=== PATIENT | male | born 1965 | race Caucasian/White ===

== ENCOUNTER 2016-11-13 09:58 | Emergency (ER) | payer BC, OTHER ==
[2016-11-13] MEDS ORDERED: MORPHINE SULFATE 10 MG/ML INJ IV ONE (10:18)
[2016-11-13] MEDS ORDERED: KETOROLAC TROMETHAMINE INJ/PF 30 MG/1 ML SDV IV ONE (10:18)
[2016-11-13] MEDS ORDERED: NORMAL SALINE 1000 ML 1,000 ML IV PRN (10:18)
[2016-11-13] MEDS ORDERED: ONDANSETRON HCL INJ/PF 4 MG/2 ML SDV IV ONE (10:18)
--- NOTE | 2016-11-13 10:20 | ER Document Report ---
ED Medical Screen (RME) - General Chief Complaint: Possible Kidney Stone Stated Complaint: RIGHT SIDE BACK PAIN Time Seen by Provider: 11/13/16 10:18 Notes: Patient started with flank pain that started yesterday. It is right-sided. He states he has never had a kidney stone but believes he has one now. Patient is on Coumadin for cardiac disease and states he has been peeing blood today. He states his urine appeared black yesterday. He also states that he is on a medication that requires him to have regular kidney monitoring. TRAVEL OUTSIDE OF THE [place] IN LAST 30 DAYS: No - Related Data Allergies/Adverse Reactions: No Known Allergies Allergy (Unverified 11/13/16 10:10) Past Medical History Renal/ Medical History: Denies: Hx Peritoneal Dialysis Physical Exam - Vital signs Vitals: Resp 11/13/16 10:07 Course - Vital Signs Vital signs: Temp Pulse Resp BP Pulse Ox 11/13/16 10:07
--- NOTE | 2016-11-13 10:55 | ER Document Report ---
ED GI/ - General Mode of Arrival: Ambulatory Information source: Patient TRAVEL OUTSIDE OF THE [place] IN LAST 30 DAYS: No - HPI Patient complains to provider of: Abdominal pain <CHILO POLO - Last Filed: 11/13/16 12:09> <ERICK IVAN - Last Filed: 11/13/16 12:32> - General Chief Complaint: Possible Kidney Stone Stated Complaint: RIGHT SIDE BACK PAIN Time Seen by Provider: 11/13/16 10:18 Notes: Patient is a 51 year old male that presents to the emergency department today with complaints of right sided abdominal and right sided flank pain. Patient states he has had the flank pain for 3-4 days but today the pain began to migrate to his RLQ and it has increased in severity. (CHILO POLO) - Related Data Allergies/Adverse Reactions: No Known Allergies Allergy (Unverified 11/13/16 10:10) Home Medications: Current Home Medications Metoprolol Succinate [Toprol XL 200 mg Tablet] 200 mg PO DAILY 11/13/16 [History ] Warfarin Sodium [Coumadin] 10 mg PO Q6D 11/13/16 [History] Warfarin Sodium [Coumadin] 15 mg PO ONCE PRN 11/13/16 [History] Past Medical History - General Information source: Patient - Social History Smoking Status: Current Every Day Smoker Cigarette use (# per day): Yes - 1/3 ppd Frequency of alcohol use: None Drug Abuse: None Lives with: Family Family History: Reviewed & Not Pertinent Patient has suicidal ideation: No Renal/ Medical History: Reports: Hx Kidney Stones Surgical Hx: Negative <CHILO POLO - Last Filed: 11/13/16 12:09> Review of Systems - Review of Systems Constitutional: No symptoms reported EENT: No symptoms reported Cardiovascular: No symptoms reported Respiratory: No symptoms reported Gastrointestinal: See HPI, Abdominal pain Genitourinary: See HPI, Flank pain Male Genitourinary: No symptoms reported Musculoskeletal: No symptoms reported Skin: No symptoms reported Hematologic/Lymphatic: No symptoms reported Neurological/Psychological: No symptoms reported -: Yes All other systems reviewed and negative <CHILO POLO - Last Filed: 11/13/16 12:09> Physical Exam <CHILO POLO - Last Filed: 11/13/16 12:09> <ERICK IVAN - Last Filed: 11/13/16 12:32> - Vital signs Vitals: Resp 20 11/13/16 10:07 - Notes Notes: Physical Exam: General: Alert, appears uncomfortable. HEENT: Normocephalic. Atraumatic. PERRL. Extraocular movements intact. Oropharynx clear. Neck: Supple. Non-tender. Respiratory: No respiratory distress. Clear and equal breath sounds bilaterally. Cardiovascular: Regular rate and rhythm. Abdominal: Obese. Right lower quadrant tenderness with palpation. No distension. Normal Bowel Sounds. Back: Right flank tenderness with percussion. No deformity or step off. Extremities: Moves all four extremities. Upper extremities: Normal inspection. Normal ROM. Lower extremities: Normal inspection. No edema. Normal ROM. Neurological: Normal cognition. AAOx4. Normal speech. Psychological: Normal affect. Normal Mood. Skin: Warm. Dry. Normal color. (CHILO POLO) Course - Laboratory Result Diagrams: 11/13/16 10:55 11/13/16 10:55 <CHILO POLO - Last Filed: 11/13/16 12:09> - Laboratory Result Diagrams: 11/13/16 10:55 11/13/16 10:55 - Diagnostic Test Radiology reviewed: Image reviewed, Reports reviewed - 6 mm right UPJ stone with moderate right hydronephrosis <ERICK IVAN - Last Filed: 11/13/16 12:32> - Vital Signs Vital signs: Temp Pulse Resp BP Pulse Ox 98.4 F 71 20 141/85 H 96 11/13/16 10:09 11/13/16 10:09 11/13/16 10:09 11/13/16 10:09 11/13/16 10:09 - Laboratory Laboratory results interpreted by ca: 11/13/16 11/13/16 11/13/16 10:55 10:55 10:55 WBC 13.2 H Seg Neutrophils % 78.3 H Absolute Neutrophils 10.3 H PT 23.3 H BUN 22 H Creatinine 1.55 H Est GFR ( Amer) 57 L Est GFR (Non-Af Amer) 47 L Urine Blood 11/13/16 10:55 WBC Seg Neutrophils % Absolute Neutrophils PT BUN Creatinine Est GFR ( Amer) Est GFR (Non-Af Amer) Urine Blood LARGE H Discharge <CHILO POLO - Last Filed: 11/13/16 12:09> <ERICK IVAN - Last Filed: 11/13/16 12:32> - Discharge Clinical Impression: Obstruction of right ureteropelvic junction (UPJ) due to stone Condition: Stable Disposition: HOME, SELF-CARE Additional Instructions: Kidney Stone: You are passing or have passed a kidney stone. These stones are usually due to increased calcium or uric acid concentrations in your urine. Stones within the kidney itself are not painful. The pain occurs as the stone leaves the kidney to pass down the long tube, called the ureter, leading to the bladder. If the stone is small, it will usually pass by itself. Most patients can pass the stone at home. You will usually receive medications for pain, nausea or vomiting, and sometimes a medication to assist in passing the kidney stone. However, if the pain is very severe or if vomiting prevents you from taking oral pain medications, you may need to return for further treatment. Drink three or four quarts of fluids per day. You will be given pain medication (if needed) and urine strainers. Strain all your urine to see if the stone passes. If your doctor has asked you to bring the stone in for analysis, return with the stone once it has passed. Return if pain or vomiting become severe, if you develop a high fever, if you are unable to pass your urine, or if other unusual symptoms occur. TAKE THE PAIN MEDICATION NEEDED. DRINK PLENTY OF FLUIDS. FOLLOW UP WITH [facility]--CALL FOR AN APPOINTMENT. RETURN TO THE EMERGENCY ROOM IF ANY NEW OR WORSENING SYMPTOMS. Prescriptions: Oxycodone HCl/Acetaminophen [Percocet 5-325 mg Tablet] 1 - 2 tab PO ASDIR PRN # 20 tablet PRN Reason: Referrals: CHAR JADE MD [Primary Care Provider] - Follow up as needed [facility] [Provider Group] - Follow up in 3-5 days Scribe Attestation: 11/13/16 12:31 I personally performed the services described in the documentation, reviewed and edited the documentation which was dictated to the scribe in my presence, and it accurately records my words and actions. (ERICK IVAN) Scribe Documentation - Scribe Written by Seema:: Seema Barton, 11/13/2016 1224 acting as scribe for :: Franck <CHILO POLO - Last Filed: 11/13/16 12:09>
[2016-11-13 11:12] LABS: ABSOLUTE BASOPHILS # (AUTO) 0.1 10^3/uL (0.0-0.2); ABSOLUTE EOSINOPHILS # (AUTO) 0.1 10^3/uL (0.0-0.6); ABSOLUTE LYMPHOCYTES (AUTO) 1.7 10^3/uL (0.5-4.7); ABSOLUTE NEUT (AUTO) 10.3 10^3/uL (1.7-8.2); BASOPHILS % (AUTO) 0.4 % (0-2); EOSINOPHILS % (AUTO) 0.7 % (0-6); HEMATOCRIT 40.7 % (37.9-51.0); HEMOGLOBIN 14.5 g/dL (13.5-17.0); HGB HCT DIFFERENCE 2.8; LYMPHOCYTES % (AUTO) 13.1 % (13-45); MEAN CORPUSCULAR HEMOGLOBIN 31.2 pg (27.0-33.4); MEAN CORPUSCULAR HGB CONC 35.6 g/dL (32.0-36.0); MEAN CORPUSCULAR VOLUME 88 fl (80-97); MONOCYTES % (AUTO) 7.5 % (3-13); RED BLOOD COUNT 4.64 10^6/uL (4.35-5.55); RED CELL DISTRIBUTION WIDTH 13.5 % (11.5-14.0); SEGMENTED NEUTROPHILS % (AUTO) 78.3 % (42-78); WHITE BLOOD COUNT 13.2 10^3/uL (4.0-10.5)
[2016-11-13 11:16] LABS: APPEARANCE,URINE CLEAR; BILIRUBIN,URINE NEGATIVE (NEGATIVE); GLUCOSE, URINE NEGATIVE (NEGATIVE); KETONES,URINE NEGATIVE (NEGATIVE); LEUKOCYTE ESTERASE,URINE NEGATIVE (NEGATIVE); NITRITE,URINE NEGATIVE (NEGATIVE); PROTEIN,URINE NEGATIVE (NEGATIVE); URINE SPECIFIC GRAVITY 1.013; UROBILINOGEN,URINE NEGATIVE mg/dL (<2.0)
[2016-11-13 11:18] LABS: PROTHROMBIN TIME 23.3 SEC (11.4-15.4)
[2016-11-13 11:27] LABS: ALANINE AMINOTRANSFERASE 26 U/L (21-72); ALBUMIN 4.3 g/dL (3.5-5.0); ALKALINE PHOSPHATASE 70 U/L (38-126); ANION GAP 12 (5-19); ASPARTATE AMINO TRANSFERASE 21 U/L (17-59); BILIRUBIN,DIRECT 0.4 mg/dL (0.0-0.4); BLOOD UREA NITROGEN 22 mg/dL (7-20); CALCIUM 9.7 mg/dL (8.4-10.2); CARBON DIOXIDE 26 mmol/L (22-30); CHLORIDE 101 mmol/L (98-107); CREATININE RESULT 1.55 mg/dL (0.52-1.25); GLUCOSE 89 mg/dL (75-110); POTASSIUM 4.1 mmol/L (3.6-5.0); SODIUM 138.9 mmol/L (137-145); TOTAL PROTEIN 7.2 g/dL (6.3-8.2)
--- NOTE | 2016-11-13 11:33 | RADIOLOGY REPORT (SQ) ---
EXAM DESCRIPTION: CT LTD RENAL STONE PROTOCOL ON COMPLETED DATE/TIME: 11/13/2016 11:15 am REASON FOR STUDY: Right flank pain, hematuria COMPARISON: None. TECHNIQUE: CT scan of the abdomen and pelvis performed without intravenous or oral contrast. Images reviewed with lung, soft tissue, and bone windows. Reconstructed coronal and sagittal MPR images revi ewed. All images stored on PACS. All CT scanners at this facility use dose modulation, iterative reconstruction, and/or weight based d osing when appropriate to reduce radiation dose to as low as reasonably achievable (ALARA). [facility]: Dose Right [facility]: CareDose [facility]: Dose Right [facility]: Teradose 4D [facility]: Smart [employer] RADIATION DOSE: Up-to-date CT equipment and radiation dose reduction techniques were employed. CTDIv ol: 19.2 mGy. DLP: 1080 mGy-cm.mGy. LIMITATIONS: None. FINDINGS: LOWER CHEST: A small bleb is present posteriorly on image 6. NON-CONTRASTED LIVER, SPLEEN, ADRENALS: The liver is low in density. The spleen and adrenal glands a re normal. PANCREAS: No masses. No peripancreatic inflammatory changes. GALLBLADDER: No identified stones by CT criteria. No inflammatory changes to suggest cholecystitis. RIGHT KIDNEY AND URETER: No solid masses. There is a 55 mm cyst. There is a 6 mm calculus at the u reteral pelvic junction. Moderate right hydronephrosis. LEFT KIDNEY AND URETER: No suspicious masses. Assessment limited by lack of IV contrast. No signifi cant calcifications. No hydronephrosis or hydroureter. AORTA AND RETROPERITONEUM: No aneurysm. No retroperitoneal masses or adenopathy. BOWEL AND PERITONEAL CAVITY: No obvious masses or inflammatory changes. No free fluid. APPENDIX: Not identified. PELVIS, BLADDER, AND ABDOMINAL WALL:The urinary bladder is incompletely filled but otherwise unremark able. The prostate gland and seminal vesicles are normal. There is a small umbilical hernia contain ing only fat. BONES: [id number] degenerative joint changes are present in the hips. There is mild scoliosis with degenerative disc changes in the lumbar spine. OTHER: No other significant finding. IMPRESSION: 1. Right hydronephrosis secondary to the presence of a 6 mm calculus at the ureteral pe lvic junction. 2. 55 mm right renal cyst. 3. Small umbilical hernia. 4. 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 Degenerative disc disease and mild scoliosis in the lumb ar spine. COMMENT: Quality ID # [id number]: Final reports with documentation of one or more dose reduction techniques (e.g., Automated exposure control, adjustment of the mA and/or kV according to patient size, use of iterative reconstruction technique) TECHNICAL DOCUMENTATION: JOB ID: [id number] [employer]- All Rights Reserved
[2016-11-13] MEDS ORDERED: NORMAL SALINE 1000 ML 1,000 ML IV ONE (12:06)
[2016-11-13 12:42] VITALS: BP 125/75
== END 2016-11-13 12:56 | disposition home or self-care (01) ==
LOC: ER 09:58
DX: N20.1 Calculus of ureter (principal); R10.31 Right lower quadrant pain; R10.9 Unspecified abdominal pain; E66.9 Obesity, unspecified; F17.210 Nicotine dependence, cigarettes, uncomplicated; Z87.442 Personal history of urinary calculi
CPT/HCPCS: 99284; 96361; 96374; 96375; 36415; 85025; 85610; 80053; 81001; 76380; J1885; J2270; J2405; J7030

== ENCOUNTER 2017-09-17 20:39 | Inpatient (IN) | payer OTHER ==
[2017-09-17] MEDS ORDERED: ASPIRIN 81 MG TABLET, CHEWABLE PO ONE (21:22)
[2017-09-17] MEDS ORDERED: NITROGLYCERIN 0.4 MG/TAB 25 TAB/BOTTLE SL PRN (21:22)
--- NOTE | 2017-09-17 21:30 | ER Document Report ---
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 Patient states that while working he experienced chest pressure, palpitation, diaphoresis and shortness of breath. He states this feels similar to when he had atrial fibrillation in the past. He has undergone 3 ablations and is currently on Tikosyn, Coumadin and metoprolol. Patient also states that he has been experiencing abdominal cramping that is diffusely located, intermittent. Patient also states that he had 2 bowel movements that were bloody today. He reports associated black stool. He denies prior similar symptoms. He has had a stress test within the last 2 years which she reports to be normal. He also had a colonoscopy within the last year which he also reports to be normal. Patient is a pack per day smoker. TRAVEL OUTSIDE OF THE [place] IN LAST 30 DAYS: No - HPI Onset: Just prior to arrival Onset/Duration: Gradual, Persistent, Better Quality of pain: Achy, Pressure Severity: Mild Associated symptoms: Chest pain, Nausea, Shortness of breath, Sweating Exacerbated by: Walking - Related Data Allergies/Adverse Reactions: No Known Allergies Allergy (Unverified 11/13/16 10:10) Past Medical History - General Information source: Patient - Social History Smoking Status: Current Every Day Smoker Cigarette use (# per day): Yes - 20 Smoking Education Provided: Yes - Patient counselled regarding cessation for 4 minutes Frequency of alcohol use: None Drug Abuse: None Lives with: Family Family History: Reviewed & Not Pertinent Patient has suicidal ideation: No Patient has homicidal ideation: No - Past Medical History Cardiac Medical History: Reports: Hx Atrial Fibrillation Renal/ Medical History: Reports: Hx Kidney Stones. Denies: Hx Peritoneal Dialysis Review of Systems - Review of Systems Notes: REVIEW OF SYSTEMS: CONSTITUTIONAL : Denies fever, chills, or sweats. Denies recent illness. Denies weight loss, recent hospitalizations. EENT: Denies visual changes, eye pain. Denies nasal or sinus congestion or discharge. Denies sore throat, oral lesions, difficulty swallowing. CARDIOVASCULAR: Denies lower extremity edema. RESPIRATORY: Denies cough, cold, or chest congestion. GASTROINTESTINAL: Denies abdominal pain or distention. Denies nausea, vomiting , or diarrhea. Denies blood in vomitus, Denies constipation. GENITOURINARY: Denies difficulty urinating, painful urination, frequency, blood in urine, or vaginal discharge. MUSCULOSKELETAL: Denies back or neck pain or stiffness. Denies joint pain or swelling. SKIN: Denies rash, lesions or sores. HEMATOLOGIC : Denies easy bruising or bleeding. LYMPHATIC: Denies swollen glands. NEUROLOGICAL: Denies confusion or altered mental status. Denies passing out or loss of consciousness. Denies dizziness or lightheadedness. Denies headache. Denies weakness or paralysis. Denies problems difficulty with ambulation, slurred speech. Denies sensory loss, numbness, or tingling. Denies seizures. PSYCHIATRIC: Denies anxiety or stress. Denies depression, suicidal ideation, or homicidal ideation. Denies visual or auditory hallucinations. Physical Exam - Vital signs Vitals: Resp 23 H 09/17/17 20:56 - Notes Notes: PHYSICAL EXAMINATION: GENERAL: Well-appearing, well-nourished and in no acute distress. HEAD: Atraumatic, normocephalic. EYES: Pupils equal round and reactive to light, extraocular movements intact, sclera anicteric, conjunctiva are normal. ENT: Nares patent, oropharynx clear without exudates. Moist mucous membranes. NECK: Normal range of motion, supple without lymphadenopathy LUNGS: Breath sounds clear to auscultation bilaterally and equal. No wheezes rales or rhonchi. HEART: Tachycardia, regular rhythm. ABDOMEN: Soft, nontender, nondistended abdomen. No guarding, no rebound. No masses appreciated. Musculoskeletal: Normal range of motion, no pitting or edema. No cyanosis. rectal: brown Stool, bright red blood. NEUROLOGICAL: Cranial nerves grossly intact. Normal speech, normal gait. Normal sensory, motor exams PSYCH: Normal mood, normal affect. SKIN: Warm, Dry, normal turgor, no rashes or lesions noted. Course - Re-evaluation Re-evalutation: Laboratory 09/17/17 09/17/17 09/17/17 21:04 21:04 21:04 WBC 11.3 H RBC 5.30 Hgb 16.1 Hct 46.5 MCV 88 MCH 30.3 MCHC 34.6 RDW 13.9 Plt Count 219 Seg Neutrophils % 61.8 Lymphocytes % 29.1 Monocytes % 7.5 Eosinophils % 1.2 Basophils % 0.4 Absolute Neutrophils 7.0 Absolute Lymphocytes 3.3 Absolute Monocytes 0.8 Absolute Eosinophils 0.1 Absolute Basophils 0.0 PT INR Sodium 145.7 H Potassium 3.9 Chloride 106 Carbon Dioxide 29 Anion Gap 11 BUN 16 Creatinine 1.10 Est GFR ( Amer) > 60 Est GFR (Non-Af Amer) > 60 Glucose 95 Lactic Acid Calcium 9.3 Total Bilirubin 0.7 Direct Bilirubin 0.3 Neonat Total Bilirubin Not Reportable Neonat Direct Bilirubin Not Reportable Neonat Indirect Bili Not Reportable AST 22 ALT 36 Alkaline Phosphatase 61 Creatine Kinase 98 CK-MB (CK-2) 0.53 Troponin I < 0.012 NT-Pro-B Natriuret Pep 1240 H Total Protein 7.2 Albumin 4.2 Lipase 66.6 TSH Urine Color Urine Appearance Urine pH Ur Specific [place] Urine Protein Urine Glucose (UA) Urine Ketones Urine Blood Urine Nitrite Urine Bilirubin Urine Urobilinogen Ur Leukocyte Esterase Urine WBC (Auto) Urine RBC (Auto) U Hyaline Cast (Auto) Urine Mucus (Auto) Urine Ascorbic Acid Stool Occult Blood 09/17/17 09/17/17 09/17/17 21:04 21:04 21:12 WBC RBC Hgb Hct MCV MCH MCHC RDW Plt Count Seg Neutrophils % Lymphocytes % Monocytes % Eosinophils % Basophils % Absolute Neutrophils Absolute Lymphocytes Absolute Monocytes Absolute Eosinophils Absolute Basophils PT 23.2 H INR 1.95 Sodium Potassium Chloride Carbon Dioxide Anion Gap BUN Creatinine Est GFR ( Amer) Est GFR (Non-Af Amer) Glucose Lactic Acid Calcium Total Bilirubin Direct Bilirubin Neonat Total Bilirubin Neonat Direct Bilirubin Neonat Indirect Bili AST ALT Alkaline Phosphatase Creatine Kinase CK-MB (CK-2) Troponin I NT-Pro-B Natriuret Pep Total Protein Albumin Lipase TSH 2.02 Urine Color Urine Appearance Urine pH Ur Specific [place] Urine Protein Urine Glucose (UA) Urine Ketones Urine Blood Urine Nitrite Urine Bilirubin Urine Urobilinogen Ur Leukocyte Esterase Urine WBC (Auto) Urine RBC (Auto) U Hyaline Cast (Auto) Urine Mucus (Auto) Urine Ascorbic Acid Stool Occult Blood POSITIVE 09/17/17 09/17/17 21:40 22:42 WBC RBC Hgb Hct MCV MCH MCHC RDW Plt Count Seg Neutrophils % Lymphocytes % Monocytes % Eosinophils % Basophils % Absolute Neutrophils Absolute Lymphocytes Absolute Monocytes Absolute Eosinophils Absolute Basophils PT INR Sodium Potassium Chloride Carbon Dioxide Anion Gap BUN Creatinine Est GFR ( Amer) Est GFR (Non-Af Amer) Glucose Lactic Acid 1.1 Calcium Total Bilirubin Direct Bilirubin Neonat Total Bilirubin Neonat Direct Bilirubin Neonat Indirect Bili AST ALT Alkaline Phosphatase Creatine Kinase CK-MB (CK-2) Troponin I NT-Pro-B Natriuret Pep Total Protein Albumin Lipase TSH Urine Color YELLOW Urine Appearance SLIGHTLY-CLOUDY Urine pH 5.0 Ur Specific [place] 1.020 Urine Protein 30 H Urine Glucose (UA) NEGATIVE Urine Ketones NEGATIVE Urine Blood LARGE H Urine Nitrite NEGATIVE Urine Bilirubin NEGATIVE Urine Urobilinogen 2.0 H Ur Leukocyte Esterase NEGATIVE Urine WBC (Auto) 2 Urine RBC (Auto) 5 U Hyaline Cast (Auto) 10 Urine Mucus (Auto) MANY Urine Ascorbic Acid NEGATIVE Stool Occult Blood Chest X-Ray 09/17/17 21:21 IMPRESSION: Cardiomegaly with mild pulmonary vascular congestion but no sultana CHF. 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 Patient states that while working he experienced chest pressure, palpitation, diaphoresis and shortness of breath. He states this feels similar to when he had atrial fibrillation in the past. He has undergone 3 ablations and is currently on Tikosyn, Coumadin and metoprolol. Patient also states that he has been experiencing abdominal cramping that is diffusely located, intermittent. Patient also states that he had 2 bowel movements that were bloody today. He denies prior similar symptoms. He has had a stress test within the last 2 years which she reports to be normal. He also had a colonoscopy within the last year which he also reports to be normal. Patient is a pack per day smoker. CBC shows mild leukocytosis but no anemia. Stool is positive for blood. Patient's initial cardiac enzymes were within normal limits. BNP is elevated and chest x-ray is consistent with cardiomegaly and vascular congestion. 09/17/17 22:[address] Ramos who will see the patient on consult. 09/17/17 23:57 Patient reevaluated. He reports improvement of his chest pressure. He is complaining of nausea. Patient will be admitted to the hospitalist to the intensive care unit. 09/18/17 03:30 09/18/17 03:31 - Vital Signs Vital signs: Temp Pulse Resp BP Pulse Ox 97.8 F 90 13 111/84 97 09/18/17 02:00 09/18/17 03:00 09/18/17 02:30 09/18/17 03:00 09/18/17 02:30 - Laboratory Result Diagrams: 09/17/17 21:04 09/17/17 21:04 Laboratory results interpreted by me: 09/17/17 09/17/17 09/17/17 21:04 21:04 21:04 WBC 11.3 H PT Sodium 145.7 H NT-Pro-B Natriuret Pep 1240 H Urine Protein Urine Blood Urine Urobilinogen 09/17/17 09/17/17 21:04 22:42 WBC PT 23.2 H Sodium NT-Pro-B Natriuret Pep Urine Protein 30 H Urine Blood LARGE H Urine Urobilinogen 2.0 H - Diagnostic Test Radiology reviewed: Image reviewed, Reports reviewed - EKG Interpretation by Me Rate: Tachycardia Rhythm: A.Fib Critical Care Note - Critical Care Note Total time excluding time spent on procedures (mins): 30 - minutes of critical care time spent in direct contact evaluating and reevaluating the patient, treating symptoms, reviewing labs and studies and speaking with family and consultants excluding any procedures Discharge - Discharge Clinical Impression: New onset of congestive heart failure GI bleeding Qualifiers: GI bleed type/associated pathology: unspecified gastrointestinal hemorrhage type Qualified Code(s): K92.2 - Gastrointestinal hemorrhage, unspecified Chest pain Qualifiers: Chest pain type: unspecified Qualified Code(s): R07.9 - Chest pain, unspecified Condition: Good Disposition: ADMITTED INPATIENT Admitting Provider: Hospitalist Unit Admitted: ICU
[2017-09-17 21:34] LABS: ABSOLUTE EOSINOPHILS # (AUTO) 0.1 10^3/uL (0.0-0.6); ABSOLUTE LYMPHOCYTES (AUTO) 3.3 10^3/uL (0.5-4.7); ABSOLUTE MONOCYTES (AUTO) 0.8 10^3/uL (0.1-1.4); BASOPHILS % (AUTO) 0.4 % (0-2); EOSINOPHILS % (AUTO) 1.2 % (0-6); HEMATOCRIT 46.5 % (37.9-51.0); HEMOGLOBIN 16.1 g/dL (13.5-17.0); LYMPHOCYTES % (AUTO) 29.1 % (13-45); MEAN CORPUSCULAR HEMOGLOBIN 30.3 pg (27.0-33.4); MEAN CORPUSCULAR HGB CONC 34.6 g/dL (32.0-36.0); MEAN CORPUSCULAR VOLUME 88 fl (80-97); MONOCYTES % (AUTO) 7.5 % (3-13); PLATELET COUNT 219 10^3/uL (150-450); RED CELL DISTRIBUTION WIDTH 13.9 % (11.5-14.0); SEGMENTED NEUTROPHILS % (AUTO) 61.8 % (42-78); TOTAL CELLS COUNTED % (AUTO) 100 %; WHITE BLOOD COUNT 11.3 10^3/uL (4.0-10.5)
[2017-09-17 21:35] LABS: INTERNATIONAL RATION (INR) 1.95; PROTHROMBIN TIME 23.2 SEC (11.4-15.4)
[2017-09-17 21:40] LABS: ALANINE AMINOTRANSFERASE 36 U/L (21-72); ALBUMIN 4.2 g/dL (3.5-5.0); ALKALINE PHOSPHATASE 61 U/L (38-126); ANION GAP 11 (5-19); ASPARTATE AMINO TRANSFERASE 22 U/L (17-59); BILIRUBIN,DIRECT 0.3 mg/dL (0.0-0.4); BILIRUBIN,TOTAL 0.7 mg/dL (0.2-1.3); BLOOD UREA NITROGEN 16 mg/dL (7-20); CALCIUM 9.3 mg/dL (8.4-10.2); CARBON DIOXIDE 29 mmol/L (22-30); CHLORIDE 106 mmol/L (98-107); CREATINE KINASE 98 U/L (55-170); GLUCOSE 95 mg/dL (75-110); LIPASE 66.6 U/L (23-300); POTASSIUM 3.9 mmol/L (3.6-5.0); SODIUM 145.7 mmol/L (137-145); TOTAL PROTEIN 7.2 g/dL (6.3-8.2)
[2017-09-17 21:52] LABS: CREATINE KINASE MB 0.53 ng/mL (<4.55); NT PRO BNP 1240 pg/mL (5-900)
[2017-09-17 21:53] LABS: TROPONIN I < 0.012 ng/mL
--- NOTE | 2017-09-17 22:29 | RADIOLOGY REPORT (SQ) ---
EXAM DESCRIPTION: CHEST 2 VIEWS COMPLETED DATE/TIME: 09/17/2017 9:59 pm REASON FOR STUDY: chest pain COMPARISON: None. EXAM PARAMETERS: NUMBER OF VIEWS: two views TECHNIQUE: Digital Frontal and Lateral radiographic views of the chest acquired. RADIATION DOSE: NA LIMITATIONS: none FINDINGS: LUNGS AND PLEURA: Cardiomegaly. Pulmonary vascular congestion. No sultana pulmonary edema. MEDIASTINUM AND HILAR STRUCTURES: No masses or contour abnormalities. HEART AND VASCULAR STRUCTURES: Heart normal size. No evidence for failure. BONES: No acute findings. HARDWARE: None in the chest. OTHER: No other significant finding. IMPRESSION: Cardiomegaly with mild pulmonary vascular congestion but no sultana CHF. TECHNICAL DOCUMENTATION: JOB ID: [id number] [employer]- All Rights Reserved Reading location - IP/workstation name: [email or web address]
[2017-09-17 23:05] LABS: APPEARANCE,URINE SLIGHTLY-CLOUDY; BILIRUBIN,URINE NEGATIVE (NEGATIVE); COLOR,URINE YELLOW; GLUCOSE, URINE NEGATIVE (NEGATIVE); KETONES,URINE NEGATIVE (NEGATIVE); LEUKOCYTE ESTERASE,URINE NEGATIVE (NEGATIVE); NITRITE,URINE NEGATIVE (NEGATIVE); PROTEIN,URINE 30 mg/dL (NEGATIVE)
[2017-09-17] MEDS ORDERED: ACETAMINOPHEN 325 MG TABLET PO PRN (23:52)
[2017-09-17] MEDS ORDERED: ONDANSETRON HCL INJ/PF 4 MG/2 ML SDV IV PRN (23:52)
[2017-09-17] MEDS ORDERED: IPRATROPIUM/ALBUTEROL 0.5-2.5 MG/3 ML AMPUL NEB PRN (23:52)
[2017-09-17] MEDS ORDERED: ONDANSETRON 4 MG TAB.RAPDIS PO ONE (23:54)
[2017-09-17] MEDS ORDERED: NORMAL SALINE 100 ML with PANTOPRAZOLE SODIUM 80 MG IV PRN ×2 (23:56)
[2017-09-17] MEDS ORDERED: PANTOPRAZOLE SODIUM 80 MG in NORMAL SALINE 100 ML IV ONE (23:56)
[2017-09-18] MEDS ORDERED: PANTOPRAZOLE SODIUM 40 MG VIAL IV PRN (00:51)
[2017-09-18] MEDS: DILTIAZEM HCL/D5W 125 MG/125 ML RTUINJ IV PRN ×2 (00:53→10:43)
[2017-09-18] MEDS: NORMAL SALINE 1000 ML 1,000 ML IV SCH ×2 (00:57→07:14)
[2017-09-18] MEDS ORDERED: PANTOPRAZOLE SODIUM 80 MG in NORMAL SALINE 100 ML IV ONE (01:00)
[2017-09-18] MEDS: NORMAL SALINE 100 ML with PANTOPRAZOLE SODIUM 80 MG IV PRN ×4 (01:38→12:39)
[2017-09-18] MEDS ORDERED: CIPROFLOXACIN 400 MG/D5W RTU 400 MG/200 ML RTUPB IV ONE (02:00)
[2017-09-18 03:51] LABS: ABSOLUTE EOSINOPHILS # (AUTO) 0.2 10^3/uL (0.0-0.6); ABSOLUTE LYMPHOCYTES (AUTO) 2.9 10^3/uL (0.5-4.7); ABSOLUTE MONOCYTES (AUTO) 0.7 10^3/uL (0.1-1.4); ABSOLUTE NEUT (AUTO) 4.8 10^3/uL (1.7-8.2); BASOPHILS % (AUTO) 0.4 % (0-2); EOSINOPHILS % (AUTO) 1.9 % (0-6); HEMATOCRIT 44.1 % (37.9-51.0); HEMOGLOBIN 15.2 g/dL (13.5-17.0); LYMPHOCYTES % (AUTO) 33.6 % (13-45); MEAN CORPUSCULAR HGB CONC 34.4 g/dL (32.0-36.0); MEAN CORPUSCULAR VOLUME 87 fl (80-97); MONOCYTES % (AUTO) 8.1 % (3-13); PLATELET COUNT 180 10^3/uL (150-450); RED BLOOD COUNT 5.07 10^6/uL (4.35-5.55); RED CELL DISTRIBUTION WIDTH 13.6 % (11.5-14.0); TOTAL CELLS COUNTED % (AUTO) 100 %; WHITE BLOOD COUNT 8.7 10^3/uL (4.0-10.5)
[2017-09-18] MEDS: METRONIDAZOLE 500 MG TABLET PO SCH ×4 (03:59→21:27)
[2017-09-18 04:25] LABS: CREATINE KINASE MB 0.49 ng/mL (<4.55)
[2017-09-18 04:31] LABS: TROPONIN I < 0.012 ng/mL
[2017-09-18] MEDS ORDERED: TRAZODONE HCL 50 MG TABLET PO ONE (05:00)
[2017-09-18 05:06] LABS: ANION GAP 12 (5-19); BLOOD UREA NITROGEN 16 mg/dL (7-20); CALCIUM 8.7 mg/dL (8.4-10.2); CARBON DIOXIDE 26 mmol/L (22-30); CHLORIDE 108 mmol/L (98-107); GLUCOSE 93 mg/dL (75-110); LIPASE 52.7 U/L (23-300); POTASSIUM 3.6 mmol/L (3.6-5.0); SODIUM 145.8 mmol/L (137-145)
--- NOTE | 2017-09-18 05:08 | PDOC H&P ---
History of Present Illness Admission Date/PCP: 09/17/17 23:52 Patient complains of: Bright red blood per rectum History of Present Illness: MAGDALENE EDWARDS JR is a 52 year old male with a past medical history of obesity , atrial fibrillation postembolization 3 on Tikosyn and on Coumadin. Patient presents with 12 hours of lower abdominal cramping followed by bowel movement with bright red blood 2. No preceding black tarry stools, abdominal pain nausea or vomiting or subsequent fever. Patient had intermittent left-sided sharp nonradiating 3 out of 5 chest pain which is reproducible to palpation of the area. He denies shortness of breath, palpitations, nausea or vomiting. He denies previous episode of GI bleed, hemorrhoids, constipation or coronary syndrome. In the emergency room he is found to have uncontrolled A. fib in the 120s, a subtherapeutic Coumadin level, unremarkable cardiac enzymes, a normal hemoglobin but heme positive stools. He is referred to the hospitalist for admission. Past Medical History Cardiac Medical History: Reports: Atrial Fibrillation Social History Information Source: Patient, [facility] Records Lives with: Family Smoking Status: Current Every Day Smoker Cigarettes Packs Per Day: 1 Number of Years Smokin Last Time Smoked: 09/17/2017 Frequency of Alcohol Use: None Hx Recreational Drug Use: No Drugs: None Hx Prescription Drug Abuse: No - Advance Directive Resuscitation Status: Full Code Family History Family History: denies: Malignancy Parental Family History Reviewed: Yes Children Family History Reviewed: Yes Sibling(s) Family History Reviewed.: Yes Medication/Allergy Home Medications: Metoprolol Succinate [Toprol XL 200 mg Tablet] 200 mg PO DAILY 11/13/16 Warfarin Sodium [Coumadin] 10 mg PO Q6D 11/13/16 Warfarin Sodium [Coumadin] 15 mg PO ONCE PRN 11/13/16 Dofetilide [Tikosyn] 250 mcg PO DAILY 09/18/17 Allergies/Adverse Reactions: No Known Allergies Allergy (Unverified 11/13/16 10:10) Physical Exam Vital Signs: Temp Pulse Resp BP Pulse Ox 97.3 F 104 H 18 113/82 99 09/18/17 03:18 09/18/17 04:00 09/18/17 03:18 09/18/17 04:00 09/18/17 03:18 Intake & Output 09/16/17 09/17/1709/18/18 11:59 11:59 11:59 Weight 164.2 kg General appearance: PRESENT: cooperative, mild distress, well-developed, well- nourished. ABSENT: disheveled, hard of hearing Head exam: PRESENT: atraumatic, normocephalic Eye exam: PRESENT: conjunctiva pink, EOMI, PERRLA. ABSENT: scleral icterus Ear exam: PRESENT: normal external ear exam Mouth exam: PRESENT: moist, tongue midline Neck exam: ABSENT: carotid bruit, JVD, lymphadenopathy, thyromegaly Respiratory exam: PRESENT: clear to auscultation bill. ABSENT: accessory muscle use, rales, rhonchi, wheezes Cardiovascular exam: PRESENT: irregular rhythm, other - Left-sided chest wall pain reproduced by palpation of the intercostal musculature.. ABSENT: diastolic murmur, rubs, systolic murmur Pulses: PRESENT: normal dorsalis pedis pul Vascular exam: PRESENT: normal capillary refill GI/Abdominal exam: PRESENT: normal bowel sounds, soft. ABSENT: distended, guarding, mass, organolmegaly, rebound, tenderness Rectal exam: PRESENT: deferred, heme (-) stool Extremities exam: PRESENT: full ROM. ABSENT: calf tenderness, clubbing, pedal edema Neurological exam: PRESENT: alert, awake, oriented to person, oriented to place , oriented to time, oriented to situation, CN II-XII grossly intact. ABSENT: motor sensory deficit Psychiatric exam: PRESENT: appropriate affect, normal mood. ABSENT: homicidal ideation, suicidal ideation Skin exam: PRESENT: dry, intact, warm. ABSENT: cyanosis, rash Results Laboratory Results: 09/18/17 03:30 09/18/17 03:30 09/18/17 09/18/17 03:30 03:30 WBC 8.7 RBC 5.07 Hgb 15.2 Hct 44.1 MCV 87 MCH 30.0 MCHC 34.4 RDW 13.6 Plt Count 180 Seg Neutrophils % 56.0 Lymphocytes % 33.6 Monocytes % 8.1 Eosinophils % 1.9 Basophils % 0.4 Absolute Neutrophils 4.8 Absolute Lymphocytes 2.9 Absolute Monocytes 0.7 Absolute Eosinophils 0.2 Absolute Basophils 0.0 Sodium 146.0 H Potassium 4.1 Chloride 107 Carbon Dioxide 27 Anion Gap 12 BUN 16 Creatinine 1.13 Est GFR ( Amer) > 60 Est GFR (Non-Af Amer) > 60 Glucose 95 Calcium 9.2 Lipase 69.1 09/18/17 03:30 CK-MB (CK-2) 0.49 Troponin I < 0.012 Impressions: Chest X-Ray 09/17/17 21:21 IMPRESSION: Cardiomegaly with mild pulmonary vascular congestion but no sultana CHF. Assessment & Plan - Diagnosis (1) GI bleeding Qualifiers: GI bleed type/associated pathology: unspecified gastrointestinal hemorrhage type Qualified Code(s): K92.2 - Gastrointestinal hemorrhage, unspecified Is this a current diagnosis for this admission?: Yes Plan: Likely diverticular bleed given history, complicated by anticoagulation, n.p.o. , serial CBCs, type and screen, GI consult and consideration of endoscopy. (2) Chest pain Qualifiers: Chest pain type: unspecified Qualified Code(s): R07.9 - Chest pain, unspecified Is this a current diagnosis for this admission?: Yes Plan: This pain is reproducible by chest wall palpation and agrees this is the pain for which he seeks evaluation., Symptomatic management (3) Atrial fibrillation Is this a current diagnosis for this admission?: Yes Plan: Uncontrolled rate, optimize beta-maru, continue anticoagulation if no significant drop in hemoglobin. Elevation in BNP likely secondary to uncontrolled A. fib. Reevaluate following rate control and consideration of echocardiogram. - Time Time Spent: 30 to 50 Minutes - Inpatient Certification Medical Necessity: Need Close Monitoring Due to Risk of Patient Decompensation
[2017-09-18] MEDS ORDERED: HEPARIN SOD (PORCINE) 5,000 UNIT/ML 1 ML SYRINGE SUBCUT SCH (06:00)
--- NOTE | 2017-09-18 07:58 | PDOC CONSULTATION ---
Consultation Consult Date: 09/17/17 Attending physician:: MONICO VASQUEZ Consult reason:: chest pain syndrome. blood in stools ? melena History of Present Illness Admission Date/PCP: 09/17/17 23:52 History of Present Illness: MAGDALENE EDWARDS JR is a 52 year old male I was called overnight on this patient presented to ED has had a history of A fib, and on Coumadin patient presented with chest pain, irregular rate on Cardizem drip will need cardiology consult has had a recent colonoscopy this year performed elsewhere cardiac enzymes are negative if HR can be controlled, patient can have EGD done have spoken to RN on floor will get Dr Ruiz to see patient for cardiac clearance Past Medical History Cardiac Medical History: Reports: Atrial Fibrillation Social History Lives with: Family Smoking Status: Current Every Day Smoker Cigarettes Packs Per Day: 1 Number of Years Smokin Last Time Smoked: 09/17/2017 Frequency of Alcohol Use: None Hx Recreational Drug Use: No Drugs: None Hx Prescription Drug Abuse: No - Advance Directive Resuscitation Status: Full Code Family History Family History: denies: Malignancy Parental Family History Reviewed: Yes Children Family History Reviewed: Unknown Sibling(s) Family History Reviewed.: Unknown Medication/Allergy Home Medications: Metoprolol Succinate [Toprol XL 200 mg Tablet] 200 mg PO DAILY 11/13/16 Warfarin Sodium [Coumadin] 10 mg PO Q6D 11/13/16 Warfarin Sodium [Coumadin] 15 mg PO ONCE PRN 11/13/16 Dofetilide [Tikosyn] 250 mcg PO DAILY 09/18/17 Allergies/Adverse Reactions: No Known Allergies Allergy (Unverified 11/13/16 10:10) Review of Systems Constitutional: ABSENT: fever(s), headache(s), night sweats, weakness Eyes: ABSENT: visual disturbances Ears: ABSENT: hearing changes Nose, Mouth, and Throat: ABSENT: mouth pain Cardiovascular: ABSENT: edema, orthropnea Respiratory: ABSENT: dyspnea, hemoptysis Gastrointestinal: ABSENT: diarrhea, dysphagia, nausea, vomiting Genitourinary: ABSENT: dysuria, hematuria Musculoskeletal: ABSENT: deformity Neurological: ABSENT: syncope, tingling, tremor(s), vertigo Endocrine: ABSENT: polydipsia, polyphagia, polyuria Hematologic/Lymphatic: PRESENT: easy bruising Physical Exam Vital Signs: Temp Pulse Resp BP Pulse Ox 97.3 F 112 H 18 111/72 99 07/11/18 03:18 09/18/17 07:00 09/18/17 03:18 09/18/17 07:00 09/18/17 03:18 Intake & Output 09/17/17 09/18/17 09/19/17 06:59 06:59 06:59 Intake Total 508 Output Total 250 Balance 258 Weight 164.2 kg General appearance: PRESENT: mild distress, well-developed Head exam: PRESENT: atraumatic Eye exam: PRESENT: EOMI, PERRLA. ABSENT: nystagmus, periorbital swelling, scleral icterus Mouth exam: PRESENT: moist, neck supple Throat exam: ABSENT: tonsillar exudate, tonsillogmegaly Neck exam: ABSENT: meningismus, tenderness, thyromegaly Respiratory exam: PRESENT: unlabored. ABSENT: symmetrical, tachypnea GI/Abdominal exam: PRESENT: soft. ABSENT: rebound, rigid, tenderness Extremities exam: ABSENT: joint swelling Musculoskeletal exam: PRESENT: full ROM Neurological exam: PRESENT: alert, awake, oriented to time, oriented to situation, CN II-XII grossly intact Focused psych exam: ABSENT: restlessness Skin exam: PRESENT: normal color. ABSENT: mottled, pallor, urticaria, vesicles Results Laboratory Results: 09/18/17 03:30 09/18/17 03:30 09/18/17 09/18/17 09/18/17 03:30 03:30 03:30 WBC 8.7 RBC 5.07 Hgb 15.2 Hct 44.1 MCV 87 MCH 30.0 MCHC 34.4 RDW 13.6 Plt Count 180 Seg Neutrophils % 56.0 Lymphocytes % 33.6 Monocytes % 8.1 Eosinophils % 1.9 Basophils % 0.4 Absolute Neutrophils 4.8 Absolute Lymphocytes 2.9 Absolute Monocytes 0.7 Absolute Eosinophils 0.2 Absolute Basophils 0.0 Sodium 145.8 H Potassium 3.6 Chloride 108 H Carbon Dioxide 26 Anion Gap 12 BUN 16 Creatinine 0.98 Est GFR ( Amer) > 60 Est GFR (Non-Af Amer) > 60 Glucose 93 Calcium 8.7 Lipase 52.7 09/18/17 03:30 CK-MB (CK-2) 0.49 Troponin I < 0.012 Impressions: Chest X-Ray 09/17/17 21:21 IMPRESSION: Cardiomegaly with mild pulmonary vascular congestion but no sultana CHF. Assessment & Plan - Diagnosis (1) Chest pain Qualifiers: Chest pain type: unspecified Qualified Code(s): R07.9 - Chest pain, unspecified Is this a current diagnosis for this admission?: Yes Plan: will get Dr Ruiz to see if patient is stable to undergo procedure cardiac enzymes negative initially if Dr Ruiz can clear, patient to have EGD done Risks, benefits and alternatives are discussed with the patient (2) GI bleeding Qualifiers: GI bleed type/associated pathology: unspecified gastrointestinal hemorrhage type Qualified Code(s): K92.2 - Gastrointestinal hemorrhage, unspecified Is this a current diagnosis for this admission?: Yes Plan: has had colonoscopy done this year. Hgb is stable bright red blood per rectum likely due to hemorrhoids however there was associated abdominal pain with his irregular HR, could have an episode of ischemia to bowel as well continue to monitor please try to get records so that repeat exam should only be done if absolutely necessary - Time Time Spent: 50 to 70 Minutes
[2017-09-18 10:07] LABS: ABSOLUTE EOSINOPHILS # (AUTO) 0.1 10^3/uL (0.0-0.6); ABSOLUTE MONOCYTES (AUTO) 0.6 10^3/uL (0.1-1.4); BASOPHILS % (AUTO) 0.5 % (0-2); EOSINOPHILS % (AUTO) 1.8 % (0-6); HEMATOCRIT 42.7 % (37.9-51.0); HEMOGLOBIN 14.6 g/dL (13.5-17.0); LYMPHOCYTES % (AUTO) 29.7 % (13-45); MEAN CORPUSCULAR HEMOGLOBIN 29.8 pg (27.0-33.4); MEAN CORPUSCULAR HGB CONC 34.2 g/dL (32.0-36.0); MEAN CORPUSCULAR VOLUME 87 fl (80-97); MONOCYTES % (AUTO) 8.6 % (3-13); PLATELET COUNT 176 10^3/uL (150-450); RED BLOOD COUNT 4.91 10^6/uL (4.35-5.55); SEGMENTED NEUTROPHILS % (AUTO) 59.4 % (42-78); TOTAL CELLS COUNTED % (AUTO) 100 %; WHITE BLOOD COUNT 6.7 10^3/uL (4.0-10.5)
[2017-09-18] MEDS ORDERED: DOFETILIDE 500 MCG CAPSULE PO ONE (10:45)
[2017-09-18 10:46] LABS: CREATINE KINASE MB 0.52 ng/mL (<4.55)
[2017-09-18 10:52] LABS: TROPONIN I < 0.012 ng/mL
--- NOTE | 2017-09-18 11:30 | Progress Note ---
Provider Note Provider Note: CARDIOLOGY CONSULTATION INITIAL NOTE. Date of consultation: 09/18/2017. Patient seen at 10:15 AM. Patient examined after interviewing the patient. FORMAL CONSULT TO FOLLOW. IMPRESSION: 1. Recurrence of atrial fibrillation with rapid ventricular response. 2. GI bleed. 3. Morbid Obesity. 4. Symptoms and signs of obstructive sleep apnea. Will need a outpatient sleep study. 5. PREPROCEDURE CARDIAC EVALUATION FOR URGENT ENDOSCOPY. Note that the patient is clinically stable without any heart failure. At present no anginal symptoms, and is troponin I have been negative serially 2. The patient's heart rate is in the low 90s with a blood pressure of 107/67. We will increase the patient's Cardizem drip to 15 mg/h, without titration, unless there is a drop in blood pressure or heart rate, below 100 systolic, and below 60 bpm respectively. We will also give the patient 500 mcg of Tikosyn orally now. THE patient WILL BE ACCEPTABLE CARDIAC RISK FOR THIS ENDOSCOPY. Discussed with Dr. Ramos. Discussed with the patient and patient's .
[2017-09-18] MEDS ORDERED: ONDANSETRON HCL INJ/PF 4 MG/2 ML SDV ONE (12:01)
[2017-09-18] MEDS ORDERED: DIPHENHYDRAMINE HCL 50 MG/ML VIAL ONE (12:01)
[2017-09-18] MEDS ORDERED: NALOXONE HCL INJ/PF 0.4 MG/1 ML SDV ONE (12:01)
[2017-09-18] MEDS ORDERED: FLUMAZENIL INJ 0.5 MG/5 ML VIAL ONE (12:02)
[2017-09-18] MEDS ORDERED: EPINEPHRINE INJ 1 MG/10 ML DISP.SYRIN ONE (12:02)
[2017-09-18] MEDS ORDERED: GLUCAGON,HUMAN RECOMB 1 MG INJ ONE (12:02)
[2017-09-18] MEDS: MIDAZOLAM 2 MG/2 ML INJ ONE ×2 (13:30→13:34)
[2017-09-18] MEDS: FENTANYL CITRATE INJ/PF 100 MCG/2 ML AMPUL ONE ×2 (13:32→13:36)
--- NOTE | 2017-09-18 13:58 | PDOC PROGRESS REPORT ---
Subjective Progress Note for:: 09/18/17 Reason For Visit: MAGDALENE EDWARDS JR is a 52 year old male with a past medical history of obesity , atrial fibrillation postembolization 3 on Tikosyn and on Coumadin. Patient presents with 12 hours of lower abdominal cramping followed by bowel movement with bright red blood 2. No preceding black tarry stools, abdominal pain nausea or vomiting or subsequent fever. Patient had intermittent left-sided sharp nonradiating 3 out of 5 chest pain which is reproducible to palpation of the area. He denies shortness of breath, palpitations, nausea or vomiting. He denies previous episode of GI bleed, hemorrhoids, constipation or coronary syndrome. In the emergency room he is found to have uncontrolled A. fib in the 120s, a subtherapeutic Coumadin level, unremarkable cardiac enzymes, a normal hemoglobin but heme positive stools. He is referred to the hospitalist for admission. Patient claims to feel better this morning. He denies any overt bleeding. He denies chest pain Physical Exam Vital Signs: Temp Pulse Resp BP Pulse Ox 97.5 F 98 19 104/80 98 09/18/17 13:05 09/18/17 13:05 09/18/17 13:05 09/18/17 13:05 09/18/17 13:05 Intake & Output 09/17/17 09/18/17 09/19/17 06:59 06:59 06:59 Intake Total 508 Output Total 250 Balance 258 Weight 164.2 kg General appearance: PRESENT: no acute distress, morbidly obese, well-developed, well-nourished Head exam: PRESENT: atraumatic, normocephalic Eye exam: PRESENT: conjunctiva pink, EOMI, PERRLA. ABSENT: scleral icterus Ear exam: PRESENT: normal external ear exam Mouth exam: PRESENT: moist, tongue midline Neck exam: ABSENT: carotid bruit, JVD, lymphadenopathy, thyromegaly Respiratory exam: PRESENT: clear to auscultation bill. ABSENT: rales, rhonchi, wheezes Cardiovascular exam: PRESENT: irregular rhythm, +S1, +S2. ABSENT: diastolic murmur, rubs, systolic murmur Pulses: PRESENT: normal dorsalis pedis pul Vascular exam: PRESENT: normal capillary refill GI/Abdominal exam: PRESENT: normal bowel sounds, soft. ABSENT: distended, guarding, mass, organolmegaly, rebound, tenderness Rectal exam: PRESENT: deferred Extremities exam: PRESENT: full ROM. ABSENT: calf tenderness, clubbing, pedal edema Neurological exam: PRESENT: alert, awake, oriented to person, oriented to place , oriented to time, oriented to situation, CN II-XII grossly intact. ABSENT: motor sensory deficit Psychiatric exam: PRESENT: appropriate affect, normal mood. ABSENT: homicidal ideation, suicidal ideation Skin exam: PRESENT: dry, intact, warm. ABSENT: cyanosis, rash Results Laboratory Results: 09/18/17 09:48 09/18/17 03:30 09/18/17 09/18/17 09/18/17 03:30 03:30 03:30 WBC 8.7 RBC 5.07 Hgb 15.2 Hct 44.1 MCV 87 MCH 30.0 MCHC 34.4 RDW 13.6 Plt Count 180 Seg Neutrophils % 56.0 Lymphocytes % 33.6 Monocytes % 8.1 Eosinophils % 1.9 Basophils % 0.4 Absolute Neutrophils 4.8 Absolute Lymphocytes 2.9 Absolute Monocytes 0.7 Absolute Eosinophils 0.2 Absolute Basophils 0.0 Sodium 145.8 H Potassium 3.6 Chloride 108 H Carbon Dioxide 26 Anion Gap 12 BUN 16 Creatinine 0.98 Est GFR ( Amer) > 60 Est GFR (Non-Af Amer) > 60 Glucose 93 Calcium 8.7 Lipase 52.7 09/18/17 09:48 WBC 6.7 RBC 4.91 Hgb 14.6 Hct 42.7 MCV 87 MCH 29.8 MCHC 34.2 RDW 14.0 Plt Count 176 Seg Neutrophils % 59.4 Lymphocytes % 29.7 Monocytes % 8.6 Eosinophils % 1.8 Basophils % 0.5 Absolute Neutrophils 4.0 Absolute Lymphocytes 2.0 Absolute Monocytes 0.6 Absolute Eosinophils 0.1 Absolute Basophils 0.0 Sodium Potassium Chloride Carbon Dioxide Anion Gap BUN Creatinine Est GFR ( Amer) Est GFR (Non-Af Amer) Glucose Calcium Lipase 09/18/17 09/18/17 03:30 09:48 CK-MB (CK-2) 0.49 0.52 Troponin I < 0.012 < 0.012 Impressions: Chest X-Ray 09/17/17 21:21 IMPRESSION: Cardiomegaly with mild pulmonary vascular congestion but no sultana CHF. Assessment & Plan - Time Time Spent with patient: 15-24 minutes Medications reviewed and adjusted accordingly: Yes Anticipated discharge: Home Within: within 48 hours - Inpatient Certification Based on my medical assessment, after consideration of the patient's comorbidities, presenting symptoms, or acuity I expect that the services needed warrant INPATIENT care.: Yes Medical Necessity: Need For Continuous Telemetry Monitoring, Risk of Complication if Not Cared For in Hospital - Plan Summary Plan Summary: GI bleeding likely diverticular. Patient is also on Coumadin for atrial fibrillation. He is scheduled to have an endoscopy done today. We will continue to follow H&H. 2. Atypical chest pain possibly musculoskeletal. He has been seen by Dr. Ruiz acute coronary syndrome ruled out. 3. Atrial fibrillation initially with rapid ventricular response, now better controlled. The coagulant is on hold. 4.Morbid Obesity
--- NOTE | 2017-09-18 14:01 | Operative Report ---
Operative Report DATE OF SURGERY: 09/18/17 Operative Report: The risks benefits and alternatives of the procedure explained to the patient in detail and informed consent is obtained.A GIF Olympus video scope was inserted into the patient's mouth and hypopharynx, the esophagus is identified intubated and insufflated, the scope was then advanced through the esophagus stomach and duodenum, retroflexion maneuver is done ,the esophagus stomach and first and second portions of the duodenum examined PREOPERATIVE DIAGNOSIS: Noncardiac chest pain, possible melena POSTOPERATIVE DIAGNOSIS: Esophagitis, gastritis status post biopsy rule out Helicobacter pylori. No active bleeding seen OPERATION: EGD with biopsy SURGEON: MONICO VASQUEZ ANESTHESIA: Moderate Sedation - 4 mg of Versed, 75 mcg of fentanyl. Conscious sedation monitoring time 30 minutes. TISSUE REMOVED OR ALTERED: As noted above. COMPLICATIONS: None. ESTIMATED BLOOD LOSS: None. INTRAOPERATIVE FINDINGS: As noted above. PROCEDURE: Patient tolerated procedure well. Patient sent back to his room in good condition. We will resume diet and advance as tolerated Resume preprocedure medications and preprocedure activity PPI can be changed back to oral Heart rate needs to be controlled Hemoglobin stable Follow H&H We will sign off from a GI standpoint please call if needed Colonoscopy done in the [facility] about 1 year ago and that was negative
--- NOTE | 2017-09-18 16:51 | Progress Note ---
Provider Note Provider Note: spoke with Dr Ruiz patient did not have any source of bleeding some mild esophagitis and gastritis, but no active bleeding had colonoscopy done at [facility], last year and was normal should be able to restart Coumadin watch for any bleeding , transfuse as necessary
[2017-09-18 16:59] LABS: ABSOLUTE EOSINOPHILS # (AUTO) 0.1 10^3/uL (0.0-0.6); ABSOLUTE MONOCYTES (AUTO) 0.5 10^3/uL (0.1-1.4); BASOPHILS % (AUTO) 0.7 % (0-2); EOSINOPHILS % (AUTO) 2.2 % (0-6); HEMATOCRIT 41.7 % (37.9-51.0); HEMOGLOBIN 14.5 g/dL (13.5-17.0); LYMPHOCYTES % (AUTO) 29.8 % (13-45); MEAN CORPUSCULAR HEMOGLOBIN 30.4 pg (27.0-33.4); MEAN CORPUSCULAR HGB CONC 34.7 g/dL (32.0-36.0); MEAN CORPUSCULAR VOLUME 88 fl (80-97); MONOCYTES % (AUTO) 7.6 % (3-13); PLATELET COUNT 167 10^3/uL (150-450); RED BLOOD COUNT 4.76 10^6/uL (4.35-5.55); RED CELL DISTRIBUTION WIDTH 13.6 % (11.5-14.0); SEGMENTED NEUTROPHILS % (AUTO) 59.7 % (42-78); TOTAL CELLS COUNTED % (AUTO) 100 %; WHITE BLOOD COUNT 6.8 10^3/uL (4.0-10.5)
[2017-09-18 17:36] LABS: CREATINE KINASE MB 0.63 ng/mL (<4.55)
[2017-09-18 17:39] LABS: TROPONIN I < 0.012 ng/mL
[2017-09-18] MEDS: FAMOTIDINE 20 MG TABLET PO SCH (18:01)
[2017-09-18] MEDS: CIPROFLOXACIN 400 MG/D5W RTU 400 MG/200 ML RTUPB IV SCH (18:01)
[2017-09-18] MEDS: DOFETILIDE 125 MCG CAPSULE PO SCH (21:28)
--- NOTE | 2017-09-18 21:43 | EKG REPORT ---
SEVERITY:- ABNORMAL ECG - ECTOPIC ATRIAL RHYTHM NONSPECIFIC INTRAVENTRICULAR CONDUCTION DELAY : Confirmed by: Billie Lopez MD 18-Sep-2017 21:42:51
--- NOTE | 2017-09-18 21:43 | EKG REPORT ---
SEVERITY:- ABNORMAL ECG - ATRIAL FIBRILLATION MULTIFORM VENTRICULAR PREMATURE COMPLEXES BORDERLINE PROLONGED QT INTERVAL : Confirmed by: Billie Lopez MD 18-Sep-2017 21:43:07
--- NOTE | 2017-09-18 21:43 | EKG REPORT ---
SEVERITY:- ABNORMAL ECG - ATRIAL FIBRILLATION NONSPECIFIC INTRAVENTRICULAR CONDUCTION DELAY : Confirmed by: Billie Lopez MD 18-Sep-2017 21:43:00
[2017-09-18 21:47] LABS: ABSOLUTE EOSINOPHILS # (AUTO) 0.2 10^3/uL (0.0-0.6); ABSOLUTE LYMPHOCYTES (AUTO) 2.1 10^3/uL (0.5-4.7); ABSOLUTE MONOCYTES (AUTO) 0.8 10^3/uL (0.1-1.4); ABSOLUTE NEUT (AUTO) 4.6 10^3/uL (1.7-8.2); BASOPHILS % (AUTO) 0.5 % (0-2); EOSINOPHILS % (AUTO) 2.3 % (0-6); HEMATOCRIT 41.8 % (37.9-51.0); HEMOGLOBIN 14.3 g/dL (13.5-17.0); LYMPHOCYTES % (AUTO) 27.5 % (13-45); MEAN CORPUSCULAR HEMOGLOBIN 30.1 pg (27.0-33.4); MEAN CORPUSCULAR HGB CONC 34.2 g/dL (32.0-36.0); MEAN CORPUSCULAR VOLUME 88 fl (80-97); MONOCYTES % (AUTO) 10.1 % (3-13); PLATELET COUNT 174 10^3/uL (150-450); RED BLOOD COUNT 4.74 10^6/uL (4.35-5.55); RED CELL DISTRIBUTION WIDTH 14.1 % (11.5-14.0); SEGMENTED NEUTROPHILS % (AUTO) 59.6 % (42-78); TOTAL CELLS COUNTED % (AUTO) 100 %; WHITE BLOOD COUNT 7.7 10^3/uL (4.0-10.5)
[2017-09-18] MEDS ORDERED: WARFARIN SODIUM 5 MG TABLET PO SCH (22:00)
[2017-09-19 03:33] LABS: ABSOLUTE EOSINOPHILS # (AUTO) 0.1 10^3/uL (0.0-0.6); ABSOLUTE LYMPHOCYTES (AUTO) 1.7 10^3/uL (0.5-4.7); ABSOLUTE MONOCYTES (AUTO) 0.5 10^3/uL (0.1-1.4); ABSOLUTE NEUT (AUTO) 4.7 10^3/uL (1.7-8.2); BASOPHILS % (AUTO) 0.5 % (0-2); EOSINOPHILS % (AUTO) 2.1 % (0-6); HEMATOCRIT 40.8 % (37.9-51.0); LYMPHOCYTES % (AUTO) 23.5 % (13-45); MEAN CORPUSCULAR HEMOGLOBIN 30.1 pg (27.0-33.4); MEAN CORPUSCULAR HGB CONC 34.4 g/dL (32.0-36.0); MEAN CORPUSCULAR VOLUME 88 fl (80-97); MONOCYTES % (AUTO) 7.5 % (3-13); PLATELET COUNT 163 10^3/uL (150-450); RED BLOOD COUNT 4.66 10^6/uL (4.35-5.55); RED CELL DISTRIBUTION WIDTH 13.7 % (11.5-14.0); SEGMENTED NEUTROPHILS % (AUTO) 66.4 % (42-78); TOTAL CELLS COUNTED % (AUTO) 100 %; WHITE BLOOD COUNT 7.1 10^3/uL (4.0-10.5)
[2017-09-19] MEDS: METRONIDAZOLE 500 MG TABLET PO SCH ×3 (03:37→14:04)
[2017-09-19 03:48] LABS: ANION GAP 10 (5-19); BLOOD UREA NITROGEN 15 mg/dL (7-20); CALCIUM 8.5 mg/dL (8.4-10.2); CARBON DIOXIDE 26 mmol/L (22-30); CHLORIDE 108 mmol/L (98-107); GLUCOSE 112 mg/dL (75-110); POTASSIUM 3.7 mmol/L (3.6-5.0); SODIUM 143.8 mmol/L (137-145)
[2017-09-19 03:52] LABS: PROTHROMBIN TIME 23.6 SEC (11.4-15.4)
[2017-09-19 03:53] LABS: PARTIAL THROMBOPLASTIN TIME 41.7 SEC (23.5-35.8)
--- NOTE | 2017-09-19 04:31 | CONSULTATION REPORT E ---
Consultation Report NAME: MAGDALENE EDWARDS : 1965 AGE: 52Y DATE: 09/18/2017 305 A TO: LORI DUNN M.D. FROM: DADA JASON M.D. Requesting Physician The patient was seen at 10 a.m. this morning. An initial note was placed on the chart saying that the patient was acceptable endoscopic *------*. REASON FOR CONSULTATION: The patient with recurrence of atrial fibrillation with rapid ventricular response on Cardizem drip at present and history of bright red blood and melena with abdominal cramping and left-sided chest wall pain for preprocedure cardiac risk assessment. The patient seen on 09/18/2017 at 10 a.m. HISTORY OF PRESENT ILLNESS: The patient is a morbidly obese smoker with a history of atrial fibrillation with at least 3 ablations and multiple cardioversions, and was maintained in sinus rhythm on Tikosyn and also on Coumadin. The patient states he has been compliant with his medication. Yesterday he had a 12-hour period of cramping abdominal pain followed by bright red blood movement x2 and also had some cranberry-like colored stools. He says at present the abdominal cramping has subsided. He also states he had left-sided chest pain which was reproduced and his chest wall is tender. At present, there is no chest pain. The chest pain was left-sided on the front and clearly noncardiac. He states that with the atrial fibrillation he felt a little dizzy, but no syncope. There is no PND, orthopnea. There was some shortness of breath with the atrial fibrillation with rapid ventricular response. He also, after the bowel movement and during the abdominal cramping, noticed that his heart was irregularly irregular and fast, and he knew that he went back into atrial fibrillation. He is on Tikosyn and metoprolol and states that he has not missed any doses. He is also on Coumadin. There is history of TIA or CVA. There is no PND, orthopnea, or leg edema. The patient at present is being scheduled for endoscopy, upper, to assess cause of bleeding and abdominal cramping. The abdominal cramping was in the epigastric area. PAST MEDICAL HISTORY: Positive for a history of atrial fibrillation with multiple cardioversions and 3 ablations. The patient, as mentioned earlier, is on Tikosyn, metoprolol, and Coumadin. There is no history of coronary artery disease. He stated his stress test about a year ago was negative for any ischemia or IL, and he states that his echocardiogram done in March of 2017 was said to be normal by his latrine cleaner. The patient follows up with [facility], Dr. Garcia, He denies hypertension. Denies any history of heart failure. There is no TIA or CVA symptoms. There is no history of asthma or COPD. There is no history of pulmonary embolism. There is no diabetes mellitus or thyroid disease. He states that he has symptoms of sleep apnea and it is not clear whether he had a sleep study or not, but he has not been fitted with a CPAP. PAST SURGICAL HISTORY: Positive for bilateral herniorrhaphy and laparoscopic placement of mesh in the abdomen. FAMILY HISTORY: Positive for heart disease, but not premature. SOCIAL HISTORY: The patient is a smoker. There is no history of EtOH abuse. ADVANCED DIRECTIVES: The patient is a FULL CODE. His is the surrogate healthcare decision maker. REVIEW OF SYSTEMS: CONSTITUTIONAL: Complains of generalized fatigue, but no fever, chills, or rigors. HEAD: Denies headache or head injury. EYES: No history of amblyopia or diplopia. No history of amaurosis fugax. NOSE: No history of hay fever. No history of nosebleeds. MOUTH: No history of altered taste sensation. No ulcers in the mouth. No bleeding from the gums. EARS: No history of tinnitus. No history of hearing loss. No history of recurrent ear infections. THROAT: No history of odynophagia or dysphagia. No history of recurrent sore throats. SKIN: No pruritus. No yellowish discoloration of the skin. No eczema. No skin cancer. LUNGS: No history of asthma or COPD. No history of pulmonary embolism. No history of hemoptysis. Chest wall pain as mentioned earlier. No cough or sputum production. No wheezing. The patient states that he has symptoms of sleep apnea, and it is not very clear if he had a sleep study or not, but he is yet to be fitted with a CPAP, which he says is being arranged soon by his primary care physician. There is no history of pleuritic chest pain. CARDIAC: History of recurrent atrial fibrillation requiring multiple cardioversions and 3 ablations. He has gone back into atrial fibrillation. There is no history of PND, orthopnea, or symptoms of heart failure. No syncope, although he felt dizzy and short of breath when he had the atrial fibrillation with a fast ventricular response. At present, the patient is on Cardizem 10 mg/h. GASTROINTESTINAL: History of abdominal cramping and GI bleed as mentioned earlier. No prior GI bleed. No prior fatty food intolerance or gallstones. No history of cirrhosis. No history of hepatitis. No history of jaundice. No history of altered bowel movements. The patient states this is the first time he has had bright red blood and cranberry-colored stools. He has no abdominal cramping at present. The patient is scheduled for an upper GI endoscopy. He denies any weight loss. His appetite has been good. There is no history of hemorrhoids. MUSCULOSKELETAL: Denies arthritis or collagen vascular disease. RENAL: No history of chronic kidney disease. No symptoms of enlarged prostate. No history of hematuria, pyuria, or dysuria. ENDOCRINE: No history of diabetes mellitus. No history of thyroid disease. No history of heat or cold intolerance. No history of polydipsia or polyuria. CENTRAL NERVOUS SYSTEM: No history of TIA or CVA. No history of headaches, migraines, or seizure disorder. No history of gait imbalance. PSYCHIATRIC: No history of anxiety or depression. No history of suicidal ideation. No history of homicidal ideation. VASCULAR: No history of calf or buttock claudication. No DVT. HEMATOLOGIC: No history of bleeding diathesis. No history of clotting disorders. In spite of the patient's bleed, his hemoglobin is stable. MEDICATIONS: 1. Tylenol 650 mg p.o. q. 4 hours p.r.n. 2. He is on Cipro 400 mg in 200 mL IV x1. 3. He is on diphenhydramine 50 mg IV x1. 4. At home he is on Tikosyn 250 mcg p.o. q. 12 hours, but he has not had it in the hospital yet. 5. He is on Pepcid 20 mg p.o. b.i.d. 6. He is on heparin 5000 units subcutaneous q. 8 hours, which has been held. 7. He is on ipratropium-albuterol sulfate 3 mL nebulizer treatment q. 12 hours p.r.n. 8. He is on ciprofloxacin 400 mg IV q. 12 hours. 9. He is on pantoprazole 80 mg IV x1. 10. He is on metronidazole 500 mg p.o. q. 6 hours. 11. He is on nitroglycerin 1 tablet sublingually as directed. 12. He is on Zofran 8 mg p.o. x1. 13. Zofran 4 mg IV x1. 14. He is on Zofran 4 mg IV q. 8 hours p.r.n. 15. His Coumadin has been held. 16. The patient is also on 10 mg of Cardizem drip. PHYSICAL EXAMINATION: GENERAL: On examination, the patient is morbidly obese, but in no acute distress at present. He remains in atrial fibrillation. He is well groomed. VITAL SIGNS: He is afebrile, with a temperature of 97.8 degrees Fahrenheit. His pulse is 97 per minute, irregularly irregular. Blood pressure 129/97 and respirations are 14 per minute. O2 sats are 95% on room air. HEENT: Head is atraumatic, normocephalic. Eyes: Pupils are equal, round and regular, reactive to light and accommodation. Extraocular movements are normal. There is no conjunctival pallor. There is no scleral icterus. Ears: Tympanic membranes are intact. External auditory canals are clear. Nose: There is no deviation of nasal septum. There is no inflammation of the nasal mucous membranes. Mouth: Mucous membranes of the mouth are moist. Tongue is moist. There are no ulcers. There is no bleeding from the gums. Throat: There is no redness of the oropharynx. There are no exudates. SKIN: There is no skin cancer. There is no petechiae or ecchymosis. There are no skin lesions. There are no skin rashes. NECK: Supple. There is no JVD. Carotids are equal. There is no bruit. There is no lymphadenopathy. There is no goiter. Trachea is central. LUNGS: Clear to auscultation and percussion. CHEST: At present, there is no chest wall tenderness. HEART: S1, S2 are heard. S1 is of variable intensity. There is no S3 gallop. There is no S4 gallop. There is a systolic murmur at the left sternal border at the apex. There is no rub. ABDOMEN: Soft, obese, nontender. There is no hepatosplenomegaly. Bowel sounds are well heard. There are no tender areas or masses. There is no rebound, guarding, or rigidity. Bowel sounds are normal. EXTREMITIES: Femorals are deep. Femorals are diminished. There is no femoral bruit. Leg pulses are well felt. There is no pedal edema. There is no DVT or cellulitis. There is no cyanosis or clubbing. Capillary refill is normal. There is no calf tenderness. CENTRAL NERVOUS SYSTEM: The patient is conscious, awake, alert, oriented x3, with no focal deficits. PSYCHIATRIC: The patient's judgment and insight are intact. His affect is normal. DIAGNOSTIC STUDIES: The patient's EKG shows atrial fibrillation with a PVC and borderline prolonged QT interval. His chest x-ray shows cardiomegaly with mild pulmonary vascular congestion, but no congestive heart failure. To me, there is no evidence of heart failure. LABORATORY DATA: The patient's white count is 6700. His hemoglobin is 14.6. Hematocrit is 42.7 and the platelet count is 176,000. His PT was 23.2 yesterday, with INR of 1.95. His PTT is 42.1. The patient's sodium is 145.8. Potassium is 3.6. Chloride is 108. CO2 is 26. The patient's BUN is 16, creatinine of 0.98. GFR is greater than 60. His glucose is 93. Calcium is 8.7. His CPK and CPK-MB are negative x2. His lipase was 52.7. His lactic acid was 1.1. His liver function tests are normal. His anti-proBNP was 1240. His TSH was 2.02. IMPRESSION: 1. Atrial fibrillation with rapid ventricular response. 2. GI bleed. 3. Morbid obesity. 4. Symptoms and signs of obstructive sleep apnea. The patient states he will get a CPAP later on. 5. Chest wall pain, noncardiac. 6. Preprocedure cardiac evaluation for urgent endoscopy. PLAN: To give the patient Tikosyn 500 mcg p.o. x1 now and to put the patient on Cardizem 50 mg/h drip while he on endoscopy. The patient will be an acceptable cardiac risk for this procedure. Note: Sixty minutes spent on this patient, with more than 50% of the time spent on direct patient care. His medications have been reviewed and medications were adjusted. Discussed with the patient and the patient's and discussed with the after school coordinator who is doing the procedure and also with the hospitalist taking care of the patient. Medical decision-making is of high complexity. We will follow the patient. Will periodically check on the patient by telephone and if need be, directly come see the patient if needed. Thanking you. DICTATING PHYSICIAN: LORI DUNN M.D. [id number] PHY#: [id number] ID: [id number] JOB#: [id number] ACCT: [id number] cc:LORI DUNN M.D. >
[2017-09-19] MEDS: CIPROFLOXACIN 400 MG/D5W RTU 400 MG/200 ML RTUPB IV SCH (05:06)
[2017-09-19] MEDS ORDERED: METOPROLOL SUCCINATE 50 MG TAB.SR.24H PO SCH (10:00)
[2017-09-19 10:29] LABS: ABSOLUTE EOSINOPHILS # (AUTO) 0.1 10^3/uL (0.0-0.6); ABSOLUTE LYMPHOCYTES (AUTO) 1.5 10^3/uL (0.5-4.7); ABSOLUTE MONOCYTES (AUTO) 0.4 10^3/uL (0.1-1.4); ABSOLUTE NEUT (AUTO) 4.6 10^3/uL (1.7-8.2); BASOPHILS % (AUTO) 0.3 % (0-2); EOSINOPHILS % (AUTO) 1.6 % (0-6); HEMATOCRIT 42.2 % (37.9-51.0); HEMOGLOBIN 14.2 g/dL (13.5-17.0); LYMPHOCYTES % (AUTO) 23.1 % (13-45); MEAN CORPUSCULAR HEMOGLOBIN 29.8 pg (27.0-33.4); MEAN CORPUSCULAR HGB CONC 33.7 g/dL (32.0-36.0); MEAN CORPUSCULAR VOLUME 88 fl (80-97); MONOCYTES % (AUTO) 6.5 % (3-13); PLATELET COUNT 167 10^3/uL (150-450); RED BLOOD COUNT 4.78 10^6/uL (4.35-5.55); SEGMENTED NEUTROPHILS % (AUTO) 68.5 % (42-78); TOTAL CELLS COUNTED % (AUTO) 100 %; WHITE BLOOD COUNT 6.7 10^3/uL (4.0-10.5)
[2017-09-19] MEDS ORDERED: METOPROLOL SUCCINATE 50 MG TAB.SR.24H PO ONE (10:30)
[2017-09-19] MEDS: DOFETILIDE 125 MCG CAPSULE PO SCH (10:33)
[2017-09-19] MEDS: FAMOTIDINE 20 MG TABLET PO SCH (10:33)
[2017-09-19 13:36] VITALS: BP 104/80
--- NOTE | 2017-09-19 15:10 | PROGRESS NOTE E ---
Progress Note NAME: MAGDALENE EDWARDS : 1965 AGE: 52Y DATE: 09/19/2017 ROOM: 305 SUBJECTIVE: The patient is sitting up in the chair. Denies any chest pain or discomfort. The patient remains in sinus rhythm. There is no evidence of atrial fibrillation. There is no PND or orthopnea. There is no leg edema. There is no TIA or CVA symptoms. There is no bleeding on Coumadin. His INR is therapeutic at 2. He has no anginal symptoms. There is no dizziness, syncope or presyncope. Yesterday, after he came back from his EGD, he was in ectopic atrial rhythm, but was regular. His Cardizem was decreased to 2.5 mg/hr, and later stopped, and his Toprol and Tikosyn were reordered, along with Coumadin. The Coumadin was okayed by *------*. With my discussion with *------*, there was only gastritis and no source of bleeding was found, and there was no active bleeding. Hence, I was told that it is safe to restart the patient on Coumadin. OBJECTIVE: GENERAL: At patient, the patient is in no acute distress. VITAL SIGNS: He is afebrile, with a temperature of 97.7 degrees Fahrenheit. Pulse is 66 beats per minute, blood pressure is 129/80. Respirations are 18 per minute. O2 sats are 96% on room air. HEENT: Head is atraumatic, normocephalic. Eyes: Pupils are equal, round, regular, reactive to light and accommodation. Extraocular movements are normal. There is no conjunctival pallor. There is no scleral icterus. ENT is negative. NECK: Supple. There is no JVD. Carotids are equal. There is no bruit. There is no lymphadenopathy. There is no goiter. Trachea is central. LUNGS: Clear to auscultation and percussion, without any rhonchi, rales or wheezing. There is no chest wall tenderness. HEART: S1, S2 are heard. S1 is of normal intensity. There is no S3 gallop. There is no S4 gallop. There is a systolic murmur at the left sternal border, at the apex. There is no rub. ABDOMEN: Obese, nontender. There is no hepatosplenomegaly. Bowel sounds are well-heard. There are no tender areas or masses. There is no rebound, guarding or rigidity. EXTREMITIES: The femorals are deep and there are no femoral bruits. Leg pulses are well-felt, and there is no pedal edema. There is no DVT or cellulitis. There is no calf tenderness. There is no cyanosis or clubbing. Capillary refill is normal. There is no calf tenderness. 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 PSYCHIATRIC: The patient's judgment and insight are intact. His affect is normal. DIAGNOSTICS: The patient's EKG is sinus rhythm, within normal limits. The patient's white count is 6700, hemoglobin is stable at 14.2, hematocrit is 42.2, platelet count is 167,000. The patient's sodium is 143.8, potassium 3.7, chloride 108, CO2 is 26. The patient's BUN is 15, creatinine is 0.84. GFR is greater than 60. His glucose is 112. Calcium is 8.5. His 3 sets of enzymes were negative; the last one was done yesterday. IMPRESSION: 1. PAROXYSMAL ATRIAL FIBRILLATION, BACK TO SINUS RHYTHM, STABLE. In view of the patient being on Cipro for his abdominal pain, would agree with decreasing the Coumadin to 5 mg p.o. at night instead of his usual doses. This was made aware to the patient, and he will follow up with his doctor for closer PT/INR checkup, since the patient is on Cipro, which will interact with Coumadin. Continue his Tikosyn at 250 mg p.o. q.12 hours and continue his Toprol XL at 200 mg p.o. daily, but in view of the patient being sedentary, heart rate being 66, will give only 100 mg of Toprol XL today. Continue his aspirin. 2. GI BLEED, SOURCE NOT FOUND; HOWEVER, IT SEEMS TO HAVE RESOLVED. Negative EGD for any acute findings, except for gastritis. 3. MODERATE OBESITY. 4. OBSTRUCTIVE SLEEP APNEA. The patient states that his sleep study was positive, and what he was trying to tell me was that he is having a CPAP titration sleep study, which has to be scheduled. Hence, the patient does have a diagnosis of obstructive sleep apnea. 5. CHEST WALL PAIN, NONCARDIAC, RESOLVED. RECOMMENDATIONS: As mentioned above, continue with Coumadin at a lower dose, with close PT/INR check by his PMD. Continue his Tikosyn and Toprol XL. The patient is placed on Cipro by the hospitalist for his abdominal pain, possible abdominal infection. The patient's cardiac status is stable. He will follow up with his cad specialist and his primary care physician. Note, 40 minutes spent on this patient, with more than 50% of the time spent on direct patient care. His medications have been reviewed. Medical decision-making is of moderate complexity. Will sign off. Thank you. DICTATING PHYSICIAN: LORI DUNN M.D. [id number] PHY#: [id number] ID: [id number] JOB#: [id number] ACCT: [id number] cc: >
--- NOTE | 2017-09-19 15:43 | PDOC DISCHARGE SUMMARY ---
General - Admit/Disc Date/PCP Admission Date/Primary Care Provider: 09/17/17 23:52 Discharge Date: 09/19/17 - Discharge Diagnosis (1) Atrial fibrillation Is this a current diagnosis for this admission?: Yes (2) Chest pain Is this a current diagnosis for this admission?: Yes (3) GI bleeding Is this a current diagnosis for this admission?: Yes (4) Morbid obesity due to excess calories Is this a current diagnosis for this admission?: Yes - Additional Information Resuscitation Status: Full Code Discharge Diet: Cardiac Discharge Activity: Activity As Tolerated Prescriptions: Ciprofloxacin HCl [Cipro 500 mg Tablet] 500 mg PO BID #10 tablet Dofetilide [Tikosyn 125 Mcg Capsule] 250 mcg PO Q12 #60 capsule Famotidine [Pepcid 20 mg Tablet] 20 mg PO BID #60 tablet Metronidazole [Flagyl 500 mg Tablet] 500 mg PO Q8 #12 tablet Warfarin Sodium [Coumadin 5 mg Tablet] 5 mg PO QHS #30 tablet Home Medications: Dofetilide [Tikosyn] 250 mcg PO Q12 09/18/17 Metoprolol Succinate [Toprol XL 200 mg Tablet] 200 mg PO QAM 09/18/17 Ciprofloxacin HCl [Cipro 500 mg Tablet] 500 mg PO BID #10 tablet 09/19/17 Dofetilide [Tikosyn 125 Mcg Capsule] 250 mcg PO Q12 #60 capsule 09/19/17 Famotidine [Pepcid 20 mg Tablet] 20 mg PO BID #60 tablet 09/19/17 Metronidazole [Flagyl 500 mg Tablet] 500 mg PO Q8 #12 tablet 09/19/17 Warfarin Sodium [Coumadin 5 mg Tablet] 5 mg PO QHS #30 tablet 09/19/17 History of Present Illness History of Present Illness: MAGDALENE EDWARDS JR is a 52 year old male with a past medical history of obesity , atrial fibrillation postembolization 3 on Tikosyn and on Coumadin. Patient presents with 12 hours of lower abdominal cramping followed by bowel movement with bright red blood 2. No preceding black tarry stools, abdominal pain nausea or vomiting or subsequent fever. Patient had intermittent left-sided sharp nonradiating 3 out of 5 chest pain which is reproducible to palpation of the area. He denies shortness of breath, palpitations, nausea or vomiting. He denies previous episode of GI bleed, hemorrhoids, constipation or coronary syndrome. In the emergency room he is found to have uncontrolled A. fib in the 120s, a subtherapeutic Coumadin level, unremarkable cardiac enzymes, a normal hemoglobin but heme positive stools. He is referred to the hospitalist for admission. Hospital Course Hospital Course: The patient was admitted to a telemetry bed. Dr. Ruiz was consulted for cardiology. The patient underwent an EGD and it was determined that he had gastritis, but that the most likely site of his bleeding was diverticular. There was no plan to performa colonoscopy due to the fact that the patient had stopped bleeding. Cardiology has adjusted the patient's medications. he will be discharged on coumadin as well as tikosyn for his atrial fibrillation. The patient was discharged on cipro and flagyl for diverticulitis. His usual dose of coumadin was reduced to 5 mg daily as cipro can increase INR's. He will need to have his INR check by his PCP on the Saturday after discharge. Physical Exam Vital Signs: Temp Pulse Resp BP Pulse Ox 97.8 F 64 16 104/80 97 09/19/17 13:31 09/19/17 13:31 09/19/17 13:31 09/19/17 13:31 09/19/17 13:31 Intake & Output 09/18/17 09/19/17 09/20/17 06:59 06:59 06:59 Intake Total 508 2936 Output Total 250 375 Balance 258 2561 Weight 164.2 kg 163.5 kg 163.5 kg General appearance: PRESENT: no acute distress, morbidly obese Head exam: PRESENT: atraumatic, normocephalic Neck exam: PRESENT: full ROM. ABSENT: JVD, lymphadenopathy, tenderness, thyromegaly Respiratory exam: PRESENT: other - No increased work of breathing. No wheezes, rales, or rhonchi. No tactile fremitus. Cardiovascular exam: PRESENT: RRR, other - No lateral PMI. No thrills.. ABSENT : gallop, rubs, systolic murmur Pulses: PRESENT: normal carotid pulses Vascular exam: PRESENT: normal capillary refill GI/Abdominal exam: PRESENT: normal bowel sounds, soft. ABSENT: hernia, mass, organolmegaly, tenderness Extremities exam: PRESENT: full ROM. ABSENT: calf tenderness, clubbing, joint swelling, pedal edema, tenderness Neurological exam: PRESENT: alert, altered, awake, oriented to person, oriented to place Psychiatric exam: PRESENT: appropriate affect, normal mood Skin exam: PRESENT: dry, intact, warm Results Laboratory Results: 09/19/17 09:31 09/19/17 03:26 18 09/18/17 09/19/17 16:12 21:30 03:26 WBC 6.8 7.7 7.1 RBC 4.76 4.74 4.66 Hgb 14.5 14.3 14.0 Hct 41.7 41.8 40.8 MCV 88 88 88 MCH 30.4 30.1 30.1 MCHC 34.7 34.2 34.4 RDW 13.6 14.1 H 13.7 Plt Count 167 174 163 Seg Neutrophils % 59.7 59.6 66.4 Lymphocytes % 29.8 27.5 23.5 Monocytes % 7.6 10.1 7.5 Eosinophils % 2.2 2.3 2.1 Basophils % 0.7 0.5 0.5 Absolute Neutrophils 4.0 4.6 4.7 Absolute Lymphocytes 2.0 2.1 1.7 Absolute Monocytes 0.5 0.8 0.5 Absolute Eosinophils 0.1 0.2 0.1 Absolute Basophils 0.0 0.0 0.0 Sodium Potassium Chloride Carbon Dioxide Anion Gap BUN Creatinine Est GFR ( Amer) Est GFR (Non-Af Amer) Glucose Calcium 09/19/17 09/19/17 03:26 09:31 WBC 6.7 RBC 4.78 Hgb 14.2 Hct 42.2 MCV 88 MCH 29.8 MCHC 33.7 RDW 14.0 Plt Count 167 Seg Neutrophils % 68.5 Lymphocytes % 23.1 Monocytes % 6.5 Eosinophils % 1.6 Basophils % 0.3 Absolute Neutrophils 4.6 Absolute Lymphocytes 1.5 Absolute Monocytes 0.4 Absolute Eosinophils 0.1 Absolute Basophils 0.0 Sodium 143.8 Potassium 3.7 Chloride 108 H Carbon Dioxide 26 Anion Gap 10 BUN 15 Creatinine 0.84 Est GFR ( Amer) > 60 Est GFR (Non-Af Amer) > 60 Glucose 112 H Calcium 8.5 09/18/17 09/18/17 09/18/17 03:30 09:48 16:12 CK-MB (CK-2) 0.49 0.52 0.63 Troponin I < 0.012 < 0.012 < 0.012 Impressions: Chest X-Ray 09/17/17 21:21 IMPRESSION: Cardiomegaly with mild pulmonary vascular congestion but no sultana CHF. Qualifiers - * PATIENT BEING DISCHARGED WITH ANY OF THE FOLLOWING DIAGNOSIS: No Plan Discharge Plan: Patient will be discharged to home in good condition. Time Spent: Greater than 30 Minutes
--- NOTE | 2017-09-19 20:36 | EKG REPORT ---
SEVERITY:- ABNORMAL ECG - SINUS RHYTHM NONSPECIFIC INTRAVENTRICULAR CONDUCTION DELAY : Confirmed by: Billie Lopez MD 19-Sep-2017 20:36:17
[2017-09-20] MEDS ORDERED: METOPROLOL SUCCINATE 50 MG TAB.SR.24H PO SCH (10:00)
== END 2017-09-19 14:08 | disposition home or self-care (01) | DRG 378 ==
LOC: ER 20:39 → EH 23:52 → UNDOADMIN 09-18 00:15 → 3N 09-18 02:53
PROVIDERS: ADMIT Internal Medicine; ATTEND Internal Medicine
PROC: 3E0F73Z Introduction of Anti-inflammatory into Respiratory Tract, Via Natural or Artificial Opening (ICD-10-PCS; 2017-09-18)
PROC: 0DB68ZX Excision of Stomach, Via Natural or Artificial Opening Endoscopic, Diagnostic (ICD-10-PCS; principal; 2017-09-18 12:30)
DX: K57.31 Diverticulosis of large intestine without perforation or abscess with bleeding (principal); Z68.41 Body mass index [BMI] 40.0-44.9, adult; I48.0 Paroxysmal atrial fibrillation; E66.01 Morbid (severe) obesity due to excess calories; G89.4 Chronic pain syndrome; I49.3 Ventricular premature depolarization; I45.81 Long QT syndrome; G47.33 Obstructive sleep apnea (adult) (pediatric); R07.89 Other chest pain; K20.9 Esophagitis, unspecified; K29.70 Gastritis, unspecified, without bleeding; F17.210 Nicotine dependence, cigarettes, uncomplicated; Z79.899 Other long term (current) drug therapy; Z79.01 Long term (current) use of anticoagulants; Z82.49 Family history of ischemic heart disease and other diseases of the circulatory system; Z80.9 Family history of malignant neoplasm, unspecified
CPT/HCPCS: 36415; 43239; 71046; 80048; 80053; 81001; 82272; 82550; 82553; 83605; 83690; 83880; 84443; 84484; 85025; 85610; 85730; 87040; 88305; 93005; 93010; 99291; J0171; J0744; J1200; J1610; J2250; J2310; J2405; J3010; J3490; J7030; S0164

== ENCOUNTER 2017-12-04 11:36 | Emergency (ER) | payer OTHER ==
[2017-12-04 12:56] LABS: PROTHROMBIN TIME 28.2 SEC (11.4-15.4)
[2017-12-04 12:57] LABS: PARTIAL THROMBOPLASTIN TIME 52.5 SEC (23.5-35.8)
[2017-12-04 13:16] LABS: ABSOLUTE EOSINOPHILS # (AUTO) 0.1 10^3/uL (0.0-0.6); ABSOLUTE LYMPHOCYTES (AUTO) 2.4 10^3/uL (0.5-4.7); ABSOLUTE MONOCYTES (AUTO) 0.7 10^3/uL (0.1-1.4); ABSOLUTE NEUT (AUTO) 4.8 10^3/uL (1.7-8.2); BASOPHILS % (AUTO) 0.5 % (0-2); EOSINOPHILS % (AUTO) 1.8 % (0-6); HEMATOCRIT 46.2 % (37.9-51.0); HEMOGLOBIN 16.2 g/dL (13.5-17.0); LYMPHOCYTES % (AUTO) 29.3 % (13-45); MEAN CORPUSCULAR HEMOGLOBIN 30.9 pg (27.0-33.4); MEAN CORPUSCULAR VOLUME 88 fl (80-97); MONOCYTES % (AUTO) 8.3 % (3-13); PLATELET COUNT 201 10^3/uL (150-450); RED BLOOD COUNT 5.23 10^6/uL (4.35-5.55); SEGMENTED NEUTROPHILS % (AUTO) 60.1 % (42-78); TOTAL CELLS COUNTED % (AUTO) 100 %
[2017-12-04 13:42] LABS: ALANINE AMINOTRANSFERASE 29 U/L (21-72); ALBUMIN 4.1 g/dL (3.5-5.0); ALKALINE PHOSPHATASE 61 U/L (38-126); ANION GAP 7 (5-19); ASPARTATE AMINO TRANSFERASE 20 U/L (17-59); BILIRUBIN,DIRECT 0.4 mg/dL (0.0-0.4); BILIRUBIN,TOTAL 0.7 mg/dL (0.2-1.3); BLOOD UREA NITROGEN 14 mg/dL (7-20); CALCIUM 9.4 mg/dL (8.4-10.2); CARBON DIOXIDE 29 mmol/L (22-30); CHLORIDE 103 mmol/L (98-107); GLUCOSE 89 mg/dL (75-110); POTASSIUM 4.1 mmol/L (3.6-5.0); SODIUM 138.9 mmol/L (137-145); TOTAL PROTEIN 7.2 g/dL (6.3-8.2)
[2017-12-04] MEDS ORDERED: NORMAL SALINE 1000 ML 1,000 ML IV ONE ×2 (13:43→17:32)
[2017-12-04 14:01] LABS: APPEARANCE,URINE CLEAR; BILIRUBIN,URINE NEGATIVE (NEGATIVE); COLOR,URINE YELLOW; GLUCOSE, URINE NEGATIVE (NEGATIVE); KETONES,URINE NEGATIVE (NEGATIVE); LEUKOCYTE ESTERASE,URINE NEGATIVE (NEGATIVE); NITRITE,URINE NEGATIVE (NEGATIVE); PROTEIN,URINE NEGATIVE (NEGATIVE); URINE SPECIFIC GRAVITY 1.014; UROBILINOGEN,URINE NEGATIVE mg/dL (<2.0)
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
--- NOTE | 2017-12-04 19:35 | EKG REPORT ---
SEVERITY:- ABNORMAL ECG - ATRIAL FIBRILLATION NONSPECIFIC INTRAVENTRICULAR CONDUCTION DELAY : Confirmed by: Billie Lopez MD 04-Dec-2017 19:35:01
[2017-12-04 22:03] VITALS: BP 118/82
== END 2017-12-04 23:17 | disposition short-term general hospital (02) ==
LOC: ER 11:36
DX: I48.91 Unspecified atrial fibrillation (principal); K92.2 Gastrointestinal hemorrhage, unspecified; I95.9 Hypotension, unspecified; F17.210 Nicotine dependence, cigarettes, uncomplicated; K62.5 Hemorrhage of anus and rectum; Z87.442 Personal history of urinary calculi
CPT/HCPCS: 36415; 80053; 81001; 82272; 84484; 85025; 85610; 85730; 86850; 86900; 86901; 93005; 93010; 96360; 96361; 99285

== ENCOUNTER 2018-03-25 09:00 | Emergency (ER) | payer OTHER ==
[2018-03-25] MEDS ORDERED: ALBUTEROL SULFATE 0.083% NEB 2.5 MG/3 ML AMPUL NEB ONE (10:06)
[2018-03-25] MEDS ORDERED: PREDNISONE 20 MG TABLET PO ONE ×2 (10:07→13:51)
--- NOTE | 2018-03-25 10:08 | ER Document Report ---
ED Medical Screen (RME) - General Chief Complaint: Chest Pain Stated Complaint: CHEST PAIN Time Seen by Provider: 03/25/18 10:06 Notes: 52-year-old male to the emergency department chief complaint of cough, wheeze and generally feeling bad. Tightness in the chest. Was seen here recently for the same. Patient smokes half pack cigarettes a day. 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 Denies any neck pain but does state that he has some tightness but thinks is mostly due to his breathing. No other major symptoms at this time. I have greeted and performed a rapid initial assessment of this patient. A comprehensive ED assessment and evaluation of the patient, analysis of test results and completion of the medical decision making process will be conducted by additional ED providers. TRAVEL OUTSIDE OF THE [place] IN LAST 30 DAYS: No - Related Data Allergies/Adverse Reactions: amoxicillin [From Augmentin] Allergy (Verified 03/25/18 09:02) clavulanic acid [From Augmentin] Allergy (Verified 03/25/18 09:02) Past Medical History - Past Medical History Cardiac Medical History: Reports: Hx Atrial Fibrillation Neurological Medical History: Denies: Hx Seizures Renal/ Medical History: Reports: Hx Kidney Stones. Denies: Hx Peritoneal Dialysis Past Surgical History: Reports: Hx Abdominal Surgery - hernia, Hx Bowel Surgery, Hx Cardiac Surgery - 3 ablations Review of Systems - Review of Systems Notes: Review of systems positive for the following: Chest pain, shortness of breath Physical Exam - Vital signs Vitals: Temp Pulse Resp BP Pulse Ox 98.5 F 66 20 131/78 H 96 03/25/18 09:29 03/25/18 09:29 03/25/18 09:29 03/25/18 09:29 03/25/18 09:29 Interpretation: Normal - Respiratory Respiratory status: No respiratory distress Chest status: Nontender Breath sounds: Nonproductive cough, Wheezing Chest palpation: Normal - Cardiovascular Rhythm: Regular Heart sounds: Normal auscultation Murmur: No - Extremities General upper extremity: Normal inspection, Nontender, Normal color, Normal ROM, Normal temperature General lower extremity: Normal inspection, Nontender, Normal color, Normal ROM, Normal temperature, Normal weight bearing. No: Jung's sign Course - Vital Signs Vital signs: Temp Pulse Resp BP Pulse Ox 98.5 F 66 20 131/78 H 96 03/25/18 09:29 03/25/18 09:29 03/25/18 09:29 03/25/18 09:29 03/25/18 09:29 Doctor's Discharge - Discharge Referrals: JESSICA DURAN MD [Primary Care Provider] - Follow up as needed
--- NOTE | 2018-03-25 11:04 | RADIOLOGY REPORT (SQ) ---
EXAM DESCRIPTION: CHEST 2 VIEWS COMPLETED DATE/TIME: 03/25/2018 10:52 am REASON FOR STUDY: cough, chest pain COMPARISON: 09/17/2017 NUMBER OF VIEWS: Two views. TECHNIQUE: Frontal and lateral radiographic views of the chest acquired. LIMITATIONS: None. FINDINGS: LUNGS AND PLEURA: No opacities, masses or pneumothorax. No pleural effusion. MEDIASTINUM AND HILAR STRUCTURES: No masses or contour abnormality. HEART AND VASCULAR STRUCTURES: Cardiac enlargement. Vascular congestion. BONES: No acute findings. HARDWARE: None in the chest. OTHER: No other significant finding. IMPRESSION: CARDIAC ENLARGEMENT. VASCULAR CONGESTION. TECHNICAL DOCUMENTATION: JOB ID: [id number] [email or web address]- All Rights Reserved Reading location - IP/workstation name: [email or web address]
[2018-03-25 11:53] LABS: ABSOLUTE EOSINOPHILS # (AUTO) 0.1 10^3/uL (0.0-0.6); ABSOLUTE MONOCYTES (AUTO) 0.5 10^3/uL (0.1-1.4); ABSOLUTE NEUT (AUTO) 5.7 10^3/uL (1.7-8.2); BASOPHILS % (AUTO) 0.5 % (0-2); EOSINOPHILS % (AUTO) 1.9 % (0-6); HEMATOCRIT 44.6 % (37.9-51.0); HEMOGLOBIN 15.2 g/dL (13.5-17.0); LYMPHOCYTES % (AUTO) 13.1 % (13-45); MEAN CORPUSCULAR HEMOGLOBIN 30.1 pg (27.0-33.4); MEAN CORPUSCULAR HGB CONC 34.1 g/dL (32.0-36.0); MEAN CORPUSCULAR VOLUME 88 fl (80-97); MONOCYTES % (AUTO) 7.1 % (3-13); PLATELET COUNT 175 10^3/uL (150-450); RED BLOOD COUNT 5.05 10^6/uL (4.35-5.55); RED CELL DISTRIBUTION WIDTH 13.5 % (11.5-14.0); SEGMENTED NEUTROPHILS % (AUTO) 77.4 % (42-78); TOTAL CELLS COUNTED % (AUTO) 100 %; WHITE BLOOD COUNT 7.3 10^3/uL (4.0-10.5)
[2018-03-25 12:11] LABS: ALANINE AMINOTRANSFERASE 34 U/L (21-72); ALBUMIN 4.7 g/dL (3.5-5.0); ALKALINE PHOSPHATASE 76 U/L (38-126); ANION GAP 11 (5-19); ASPARTATE AMINO TRANSFERASE 20 U/L (17-59); BILIRUBIN,DIRECT 0.1 mg/dL (0.0-0.4); BILIRUBIN,TOTAL 0.9 mg/dL (0.2-1.3); BLOOD UREA NITROGEN 13 mg/dL (7-20); CALCIUM 9.6 mg/dL (8.4-10.2); CARBON DIOXIDE 26 mmol/L (22-30); CHLORIDE 102 mmol/L (98-107); CREATINE KINASE 102 U/L (55-170); GLUCOSE 104 mg/dL (75-110); POTASSIUM 4.2 mmol/L (3.6-5.0); SODIUM 138.5 mmol/L (137-145); TOTAL PROTEIN 7.3 g/dL (6.3-8.2)
[2018-03-25 12:23] LABS: CREATINE KINASE MB 0.33 ng/mL (<4.55); NT PRO BNP 191 pg/mL (5-900)
[2018-03-25 12:25] LABS: TROPONIN I < 0.012 ng/mL
[2018-03-25 12:26] LABS: APPEARANCE,URINE SLIGHTLY-CLOUDY; BILIRUBIN,URINE NEGATIVE (NEGATIVE); COLOR,URINE YELLOW; GLUCOSE, URINE NEGATIVE (NEGATIVE); KETONES,URINE NEGATIVE (NEGATIVE); LEUKOCYTE ESTERASE,URINE TRACE (NEGATIVE); NITRITE,URINE NEGATIVE (NEGATIVE); PROTEIN,URINE 30 mg/dL (NEGATIVE); URINE SPECIFIC GRAVITY 1.018; UROBILINOGEN,URINE NEGATIVE mg/dL (<2.0)
[2018-03-25] MEDS ORDERED: IPRATROPIUM/ALBUTEROL 0.5-2.5 MG/3 ML AMPUL NEB ONE (12:52)
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
[2018-03-25] MEDS ORDERED: DOXYCYCLINE HYCLATE 100 MG TABLET PO ONE (13:51)
--- NOTE | 2018-03-25 14:49 | RADIOLOGY REPORT (SQ) ---
EXAM DESCRIPTION: U/S ABDOMEN LIMITED W/O DOP COMPLETED DATE/TIME: 03/25/2018 2:31 pm REASON FOR STUDY: severe pain upon palpation COMPARISON: None. TECHNIQUE: Dynamic and static grayscale images acquired of the abdomen and recorded on PACS. [employer] selected color Doppler and spectral images recorded. LIMITATIONS: None. FINDINGS: PANCREAS: No masses. Visualized pancreatic duct normal caliber. LIVER: Increased echogenicity. LIVER VASCULATURE: Normal directional flow of the main portal vein and hepatic veins. GALLBLADDER: No stones. Normal wall thickness. No pericholecystic fluid. ULTRASOUND-DETECTED DONIS'S SIGN: Negative. INTRAHEPATIC DUCTS AND COMMON DUCT: CBD and intrahepatic ducts normal caliber. No filling defects. INFERIOR VENA CAVA: Normal flow. AORTA: No aneurysm. RIGHT KIDNEY: Normal size. Normal echogenicity. No solid or suspicious masses. Large exophytic cyst of the inferior pole measuring 5.7 cm. No hydronephrosis. No calcifications. PERITONEAL AND RIGHT PLEURAL SPACE: No ascites or effusions. OTHER: No other significant findings. IMPRESSION: 1. No ultrasound findings of the right upper quadrant to explain pain. Normal ultrasound appearance of the gallbladder with negative sonographic Donis's sign. Consider CT or MRI to further evaluate unexplained abdominal pain. 2. Hepatic steatosis. TECHNICAL DOCUMENTATION: JOB ID: [id number] [employer]- All Rights Reserved Reading location - IP/workstation name: [email or web address]
[2018-03-25] MEDS ORDERED: ALBUTEROL SULFATE HFA (90 MCG/PUFF) 8 GM MDI (1 MDI/ER DISP) IH PRN (14:53)
[2018-03-25 15:05] VITALS: BP 139/87
--- NOTE | 2018-03-25 19:25 | EKG REPORT ---
SEVERITY:- ABNORMAL ECG - SINUS RHYTHM NONSPECIFIC INTRAVENTRICULAR CONDUCTION DELAY : Confirmed by: Aimee Beltran 25-Mar-2018 19:24:46
== END 2018-03-25 15:06 | disposition home or self-care (01) ==
LOC: ER 09:00
DX: J06.9 Acute upper respiratory infection, unspecified (principal); R07.89 Other chest pain; I51.7 Cardiomegaly; R05 Cough; R09.81 Nasal congestion; R06.2 Wheezing; I48.91 Unspecified atrial fibrillation; R10.11 Right upper quadrant pain; K76.0 Fatty (change of) liver, not elsewhere classified; R09.89 Other specified symptoms and signs involving the circulatory and respiratory systems; R31.9 Hematuria, unspecified; Q61.01 Congenital single renal cyst; R53.83 Other fatigue; R53.81 Other malaise; R68.83 Chills (without fever); R06.02 Shortness of breath; F17.210 Nicotine dependence, cigarettes, uncomplicated; Z71.6 Tobacco abuse counseling; Z88.0 Allergy status to penicillin; Z87.442 Personal history of urinary calculi
CPT/HCPCS: 93005; 99406; 99284; 36415; 82553; 82550; 83690; 85025; 80053; 81001; 84484; 83880; 71046; 76705; 93010; J7512; J3490; J7620

== ENCOUNTER 2018-05-22 10:50 | Emergency (ER) | payer OTHER ==
[2018-05-22] MEDS ORDERED: DOFETILIDE 125 MCG CAPSULE PO ONE (11:17)
[2018-05-22 11:19] LABS: ABSOLUTE EOSINOPHILS # (AUTO) 0.1 10^3/uL (0.0-0.6); ABSOLUTE LYMPHOCYTES (AUTO) 2.3 10^3/uL (0.5-4.7); ABSOLUTE MONOCYTES (AUTO) 0.7 10^3/uL (0.1-1.4); ABSOLUTE NEUT (AUTO) 5.3 10^3/uL (1.7-8.2); BASOPHILS % (AUTO) 0.4 % (0-2); EOSINOPHILS % (AUTO) 1.7 % (0-6); HEMATOCRIT 48.2 % (37.9-51.0); HEMOGLOBIN 16.4 g/dL (13.5-17.0); MEAN CORPUSCULAR HEMOGLOBIN 30.2 pg (27.0-33.4); MEAN CORPUSCULAR HGB CONC 33.9 g/dL (32.0-36.0); MEAN CORPUSCULAR VOLUME 89 fl (80-97); MONOCYTES % (AUTO) 8.3 % (3-13); PLATELET COUNT 196 10^3/uL (150-450); RED BLOOD COUNT 5.41 10^6/uL (4.35-5.55); RED CELL DISTRIBUTION WIDTH 14.1 % (11.5-14.0); SEGMENTED NEUTROPHILS % (AUTO) 62.6 % (42-78); TOTAL CELLS COUNTED % (AUTO) 100 %; WHITE BLOOD COUNT 8.5 10^3/uL (4.0-10.5)
[2018-05-22] MEDS ORDERED: METOPROLOL TARTRATE PF/INJ 5 MG/5 ML SDV IV ONE (11:20)
[2018-05-22] MEDS ORDERED: METOPROLOL SUCCINATE 50 MG TAB.SR.24H PO ONE (11:20)
[2018-05-22] MEDS ORDERED: DILTIAZEM HCL INJ 25 MG/5 ML VIAL IV ONE (11:26)
[2018-05-22] MEDS ORDERED: DILTIAZEM HCL/D5W 125 MG/125 ML RTUINJ IV PRN (11:26)
[2018-05-22 11:31] LABS: ALANINE AMINOTRANSFERASE 30 U/L (21-72); ALKALINE PHOSPHATASE 62 U/L (38-126); ANION GAP 9 (5-19); ASPARTATE AMINO TRANSFERASE 18 U/L (17-59); BILIRUBIN,DIRECT 0.2 mg/dL (0.0-0.4); BILIRUBIN,TOTAL 0.7 mg/dL (0.2-1.3); BLOOD UREA NITROGEN 13 mg/dL (7-20); CALCIUM 9.1 mg/dL (8.4-10.2); CARBON DIOXIDE 27 mmol/L (22-30); CHLORIDE 106 mmol/L (98-107); CREATINE KINASE 86 U/L (55-170); GLUCOSE 84 mg/dL (75-110); POTASSIUM 3.8 mmol/L (3.6-5.0); SODIUM 141.8 mmol/L (137-145); TOTAL PROTEIN 6.4 g/dL (6.3-8.2)
[2018-05-22 11:37] LABS: INTERNATIONAL RATION (INR) 2.43; PARTIAL THROMBOPLASTIN TIME 43.5 SEC (23.5-35.8); PROTHROMBIN TIME 27.6 SEC (11.4-15.4)
[2018-05-22 11:43] LABS: CREATINE KINASE MB 0.58 ng/mL (<4.55)
[2018-05-22 11:45] LABS: TROPONIN I < 0.012 ng/mL
[2018-05-22 12:09] VITALS: BP 122/96
--- NOTE | 2018-05-22 12:26 | ER Document Report ---
ED General - General Chief Complaint: Chest Pain Stated Complaint: CHEST PAIN Time Seen by Provider: 05/22/18 11:03 Primary Care Provider: JESSICA DURAN MD [Primary Care Provider] - Follow up as needed TRAVEL OUTSIDE OF THE [place] 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 Patient states he was undergoing a chemical stress test after receiving multiple chemicals through his IV patient still has palpitations techs noticed the patient's heart rate was increased with evaluated by our on- call cardiology staff Dr. Lopez and told to come to the ER for further evaluation. Patient states history of chronic atrial fibrillation is currently on T consent and metoprolol along with Coumadin. Patient states he was told to hold his medications for 24 hours which he did. Patient otherwise is very adamant that he has no chest pain no shortness of breath patient denies any fevers chills nausea vomiting diarrhea or trauma. Patient resting company upon my evaluation request to be discharged home heart rate is approximately 130-140 A. fib RVR to monitor - Related Data Allergies/Adverse Reactions: amoxicillin [From Augmentin] Allergy (Verified 05/22/18 11:20) clavulanic acid [From Augmentin] Allergy (Verified 05/22/18 11:20) Past Medical History - Social History Smoking Status: Current Every Day Smoker Chew tobacco use (# tins/day): No Frequency of alcohol use: None Drug Abuse: None Family History: Reviewed & Not Pertinent. denies: Malignancy Patient has suicidal ideation: No Patient has homicidal ideation: No - Past Medical History Cardiac Medical History: Reports: Hx Atrial Fibrillation Neurological Medical History: Denies: Hx Seizures Renal/ Medical History: Reports: Hx Kidney Stones. Denies: Hx Peritoneal Dialysis Past Surgical History: Reports: Hx Abdominal Surgery - hernia, Hx Bowel Surgery, Hx Cardiac Surgery - 3 ablations, Hx Orthopedic Surgery - right hip Review of Systems - Review of Systems Constitutional: No symptoms reported EENT: No symptoms reported Cardiovascular: Chest pain Respiratory: No symptoms reported Gastrointestinal: No symptoms reported Genitourinary: No symptoms reported Male Genitourinary: No symptoms reported Musculoskeletal: No symptoms reported Skin: No symptoms reported Hematologic/Lymphatic: No symptoms reported Neurological/Psychological: No symptoms reported -: Yes All other systems reviewed and negative Physical Exam - Vital signs Vitals: Temp 98.2 F 05/22/18 10:56 Interpretation: Tachycardic - General General appearance: Appears well, Alert - HEENT Head: Normocephalic, Atraumatic Eyes: Normal Pupils: PERRL - Respiratory Respiratory status: No respiratory distress Chest status: Nontender Breath sounds: Normal Chest palpation: Normal - Cardiovascular Rhythm: Irregularly irregular, Tachycardia Heart sounds: Normal auscultation Murmur: No - Abdominal Inspection: Normal Distension: No distension Bowel sounds: Normal Tenderness: Nontender Organomegaly: No organomegaly - Back Back: Normal, Nontender - Extremities General upper extremity: Normal inspection, Nontender, Normal color, Normal ROM, Normal temperature General lower extremity: Normal inspection, Nontender, Normal color, Normal ROM, Normal temperature, Normal weight bearing. No: Jung's sign - Neurological Neuro grossly intact: Yes Cognition: Normal Orientation: AAOx4 [place] Coma Scale Eye Opening: Spontaneous [place] Coma Scale Verbal: Oriented [place] Coma Scale Motor: Obeys Commands [place] Coma Scale Total: 15 Speech: Normal Motor strength normal: LUE, RUE, LLE, RLE Sensory: Normal - Psychological Associated symptoms: Normal affect, Normal mood - Skin Skin Temperature: Warm Skin Moisture: Dry Skin Color: Normal Course - Re-evaluation Re-evalutation: 05/22/18 13:40 Patient was given a dose of Cardizem to extend her metoprolol. I did initially order a drip however patient declined. While monitoring the patient patient's heart rate did become rate controlled. Patient remained asymptomatic laboratory studies not show any critical pathology I discussed the case with Dr. Meek who agrees with treatment plan giving home medications. Otherwise no critical pathology seen patient will be discharged home - Vital Signs Vital signs: Temp Pulse Resp BP Pulse Ox 98.2 F 20 122/96 H 96 05/22/18 10:56 05/22/18 12:01 05/22/18 12:00 05/22/18 12:01 - Laboratory Result Diagrams: 05/22/18 10:50 05/22/18 10:50 Laboratory results interpreted by me: 05/22/18 05/22/18 10:50 10:50 RDW 14.1 H PT 27.6 H APTT 43.5 H Critical Care Note - Critical Care Note Total time excluding time spent on procedures (mins): 35 Comments: Patient coming in for A. fib RVR requiring multiple evaluations management of medications Discharge - Discharge Clinical Impression: Morbid obesity due to excess calories Atrial fibrillation Qualifiers: Atrial fibrillation type: unspecified Qualified Code(s): I48.91 - Unspecified atrial fibrillation Condition: Good Disposition: HOME, SELF-CARE Instructions: Atrial Fibrillation ([facility]) Additional Instructions: Your evaluation today shows improvement of your heart rate with administration of your home meds. Please continue take her home meds as previous to prescribed return to ER for any concerning issues. Referrals: JESSICA DURAN MD [Primary Care Provider] - Follow up as needed
--- NOTE | 2018-05-22 13:50 | EKG REPORT ---
SEVERITY:- ABNORMAL ECG - ATRIAL FIBRILLATION RVR 137 PROLONGED QT INTERVAL NONSPECIFIC [address]-T CHANGES- INFERIOR LEADS : Confirmed by: Deuce Sorensen MD 22-May-2018 13:49:50
== END 2018-05-22 12:49 | disposition home or self-care (01) ==
LOC: ER 10:50
DX: E66.01 Morbid (severe) obesity due to excess calories (principal); I48.91 Unspecified atrial fibrillation; R07.9 Chest pain, unspecified; F17.200 Nicotine dependence, unspecified, uncomplicated; Z88.0 Allergy status to penicillin; Z87.442 Personal history of urinary calculi
CPT/HCPCS: 93005; 99285; 96374; 36415; 82553; 82550; 85025; 85610; 85730; 80053; 84484; 93010; J3490